=== PATIENT | male | born 1935 | race Caucasian/White ===

== ENCOUNTER 2019-04-29 12:31 | Outpatient (CLI) | payer MEDICARE, OTHER, SELFPAY ==
--- NOTE | 2019-04-29 12:34 | CT_ITS ---
WS: [id number] CTA THORACIC TECHNIQUE: Contrast enhanced CTA of the thoracic aorta with coronal and sagittal reformatted images a nd maximum intensity projection (MIP) images. CLINICAL INFORMATION: MILD ASCENDING AORTA DILATION COMPARISON: October 25, 2018 DLP: [id number] scans at [facility] use at least one of these dose optimization techniques: automat ed exposure control; mA and/or kV adjustment per patient size (includes targeted exams where dose is matched to clinical indication); or iterative reconstruction. FINDINGS: Ectatic dilated ascending thoracic aorta 4.0 x 3.8 cm AP by transverse is unchanged since the prior examination.. Normal descending thoracic aorta. Aortic calcification. Coronary calcification. Proxima l main pulmonary arteries are normal in appearance. A few anterior mediastinal lymph nodes. Calcified granulomas. Both lungs are well aerated. No acute pulmonary infiltrates. Adrenal glands are normal. Hypertrophic changes thoracic spine. CT/CT angio chest 59159 IMPRESSION: 1. Slightly ectatic ascending thoracic aorta measures 4.0 x 3.8 cm today AP by transverse. 2. Vascular calcification including coronary. 3. No mediastinal or hilar lymphadenopathy. 4. Lungs are well aerated. No acute pulmonary infiltrates.
[2019-04-29 13:41] LABS: Blood Urea Nitrogen 15 mg/dL (8-23)
[2019-04-29] MEDS: iohexol 350 mg/mL 100 mL Btl IV (15:28)
== END 2019-04-29 12:32 | disposition home or self-care (01) ==
LOC: RAD 12:32
PROVIDERS: Family Provider Family Medicine; PCP Family Medicine; Visit Provider Internal Medicine Cardiovascular Disease
DX: I77.810 Thoracic aortic ectasia (principal); I25.10 Atherosclerotic heart disease of native coronary artery without angina pectoris
CPT/HCPCS: 36415; 71275; 82565; 84520

== ENCOUNTER → 2019-08-05 14:12 | Outpatient (BNVA) | payer OTHER, MEDICARE, SELFPAY | PROVIDERS: Family Provider Family Medicine; PCP Family Medicine; Visit Provider Urology | DX: N39.0 Urinary tract infection, site not specified (principal); N40.1 Benign prostatic hyperplasia with lower urinary tract symptoms; N13.8 Other obstructive and reflux uropathy | CPT/HCPCS: 81001 ==

== ENCOUNTER 2019-09-06 06:49 | Day surgery (SDC) | payer MEDICARE, OTHER, SELFPAY ==
[2019-09-05 13:54] VITALS: BMI 28.0
[2019-09-06 07:05] VITALS: BP 120/77; PULSE 82; RESP 18; TEMP 37.2; O2SAT 98
[2019-09-06] MEDS: sodium chloride 0.9% 1,000 ML 30 ML IV (07:23)
[2019-09-06 07:27] LABS: Glucose Point of Care 84 mg/dL (70-110)
--- NOTE | 2019-09-06 07:28 | ANES.PREANE2 ---
Pre-Anesthetic Assessment Pre-Anesthetic Assessment: Height/Weight: Height 1.68 m Weight 78.925 kg Temp Pulse Resp BP Pulse Ox 99.0 F 82 18 120/77 98 09/06/19 07:05 09/06/19 07:05 09/06/19 07:05 09/06/19 07:05 09/06/19 07:05 Preop Diagnosis: screening Proposed Procedure: Operation Date: 09/06/19 08:20 Proposed Procedures p Colonoscopy G0105 Z86.010(Not Applicable) - Kip Armendariz MD Familial anesthetic complications: None Was Beta Kade taken within 24 hours: Yes Last intake: Intake Last Liquid Date 09/05/19 Last Liquid Time 23:00 Social: Social History: No alcohol and No tobacco Exam: Pre-Anes Outpt Exam: alert, oriented x 3, clear to auscultation bilaterally and regular rate & rhythm Airway: Cervical ROM: WNL MP: 2 Additional comments: dentures Pulmonary: Pulmonary: None reported CV/HEM: CV/HEM: CAD (stent placed 3 years ago; last took plavix day before yesterday), HTN and FL : : None reported Hepatic: Hepatic: None reported GI: GI: None reported Metabolic: Metabolic: DM Musc/skel: Musc/skel: Lower Back Pain Neuropsych: Neuropsych: None reported Anesthetic Plan: ASA status: 3 Anesthesia: MAC Risk of > 500 ml blood loss (7ml/kg in children): No Meds/Allergies Current Medications: Current Medications Generic Name Dose Route Start Last Admin Trade Name Freq PRN Reason Stop Dose Admin Sodium Chloride 1,000 mls @ 30 ml s/hr 09/06/19 07:00 09/06/19 07:23 Sodium Chloride 0.9% IV 30 mls/hr .Q24H ABRAHAM Administration PFSH Anesthesia PFSH: Medical History (Updated 09/04/19 @ 11:41 by Kip Armendariz MD) BPH (benign prostatic hyperplasia) BPH w/o urinary obs/LUTS CAD (coronary artery disease) Chronic back pain Diabetes History of prostatitis HTN (hypertension) Mild ascending aorta dilatation Surgical History History of bilateral knee replacement History of lumbar fusion Hx of heart artery stent Family History Other Heart disease Stroke Social History Smoking and tobacco status: former smoker Alcohol intake: current Alcohol intake frequency: holidays/special occasions only Adopted: No Caregiver/support person: No Lives independently: No Household members: spouse Marital status: Current occupational status: retired History of recent travel: No Current gender identity: Male Data Anesthesia Other Labs: Laboratory Results - last 48 hr 09/06/19 07:24 POC Glucose 84 Cardiac Studies: No Data to Display
--- NOTE | 2019-09-06 08:56 | W.PM.OPSUD ---
Surgery/Procedure H&P Update DATE OF PROCEDURE: September 06, 2019 DATE H&P PERFORMED: 09/04/19 PREOP DIAGNOSIS: screening PLANNED PROCEDURE: Operation Date: 09/06/19 08:20 Proposed Procedures p Colonoscopy G0105 Z86.010(Not Applicable) - Kip Armendariz MD
[2019-09-06 09:12] VITALS: BP 104/68; PULSE 69; RESP 16; TEMP 36.4; O2SAT 97
[2019-09-06 09:20] VITALS: BP 116/72; PULSE 68; RESP 18; O2SAT 96
== END 2019-09-06 09:30 | disposition home or self-care (01) ==
PROVIDERS: PCP Family Medicine; Visit Provider Internal Medicine
PROC: 0DJD8ZZ Inspection of Lower Intestinal Tract, Via Natural or Artificial Opening Endoscopic (ICD-10-PCS; CPT 45378; principal; 2019-09-06 08:15)
DX: Z12.11 Encounter for screening for malignant neoplasm of colon (principal); Z86.010 Personal history of colon polyps; Z79.82 Long term (current) use of aspirin; N40.1 Benign prostatic hyperplasia with lower urinary tract symptoms; N13.8 Other obstructive and reflux uropathy; E11.9 Type 2 diabetes mellitus without complications; I10 Essential (primary) hypertension; Z98.1 Arthrodesis status; Z87.891 Personal history of nicotine dependence
CPT/HCPCS: 12345; 36416; 45378; 82962; J2001; J3010; J7030

== ENCOUNTER 2019-09-19 08:11 | Outpatient (CLI) | payer MEDICARE, OTHER, SELFPAY ==
--- NOTE | 2019-09-19 08:44 | NMCV_ITS ---
NM adina perf SPECT r/s* [id number] Mati Wing Age: 83 Gender: M : 1935 Exam Date: 09/19/2019 08:44 Ordering Phys: Kennedi Roberts MD ([email or web address]) Technologist: RONALD Ortez Exam Location: [facility] Indications: CORONARY ARTERY DISEASE STRESS TEST Please see separate stress test report in [facility] for full findings IMAGE PROTOCOL Rest/Stress 1 Lexiscan Day Radiopharmaceutical Dose (mCi) Administration Site Administered by Rest: Tc-99m 10.5 IV RONALD Ortez Sestamibi Stress:Tc-99m 32..4 IV RONALD Andujar Sestamibi Rest: 19-Sep-2019 60 Discovery 630 Stress: 19-Sep-2019 30 Discovery 630 0.4mg Lexiscan. Images obtained in supine and prone position. SPECT RESULTS Technical Quality: Excellent Raw Data Analysis: Normal Image Corrections: No attenuation or motion correction applied Summed Stress Score: 24 Summed Rest Score: 14 Summed Difference Score: 10 PERFUSION FINDINGS Large size perfusion abnormality of moderate to severe severity of entire inferior, basal to mid inferolateral, mid septal, apical septal and apical lateral bolden on rest images with mild reversibility noted in mid to apical inferolateral bolden. FUNCTIONAL RESULTS (calculated via Gated SPECT) Stress Image LV EF (%): 66 Stress EDV (mL):116 TID: 1.13 Stress ESV (mL):39 FUNCTIONAL FINDINGS: The left ventricle is normal in size. Transient Ischemia Dilatation of 1.1. There is normal left ventricular systolic function. The left ventricular ejection fraction is normal with a value of 66%. There is normal left ventricular wall thickening. Normal end-diastolic and end-systolic volumes. IMPRESSIONS 1. Large size perfusion abnormality of moderate to severe severity of entire inferior, enitre inferolateral, mid septal and apical septal bolden with mild reversibility noted in mid to apical inferolateral bolden. 2. This is likely suggestive of small area of ischemia in circumflex artery territory. 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 3. Overall left ventricular systolic function is normal without regional wall motion abnormalities. 4. The left ventricular ejection fraction is normal with a value of 66%. 5. No prior similar studies to compare. Kennedi Roberts MD (Electronically Signed) Final Date: 22 September 2019 18:19 S
--- NOTE | 2019-09-19 08:44 | ECG_ITS ---
NAME OF STUDY: LEXISCAN SESTAMIBI STRESS TEST INDICATION: Chest Pain PROCEDURE: At the baseline, the blood pressure was 144/93 mmHg with a heart rate of 51 bpm. The electrocardiogram showed sinus bradycardia. Nonspecific T wave inversion. Poor anterior R wave progression. The Lexiscan was infused over a period of 20 seconds. A total of 0.4 milligrams of Lexiscan was infused. The stress phase was continued for a total of 5 minutes. Heart rate at the end of the stress phase was 70 bpm with a blood pressure 129/66 mmHg. The EKG at the peak infusion revealed sinus rhythm with no significant ST-T wave changes. Sestamibi was injected 20 seconds after the Lexiscan infusion. Blood pressure at the end of the recovery phase was 142/76 mmHg with a heart rate of 73 beats per minute. CONCLUSION: 1. No significant EKG changes with the LexiScan infusion. 2. No LexiScan induced chest pain or cardiac arrhythmia. 3. Normal blood pressure and heart rate response. 4. Sestamibi/sestamibi perfusion scan pending; see separate report. Electronically Signed On 09-20-2019 18:16:33 CDT by Kennedi Roberts M.D. [email or web address]
[2019-09-19 08:45] VITALS: BMI 29.8
[2019-09-19] MEDS: regadenoson 0.4 Mg/5 ml Syringe IVP (10:12)
[2019-09-19 10:16] VITALS: BP 121/67; PULSE 72
== END 2019-09-19 08:12 | disposition home or self-care (01) ==
LOC: RAD 08:17
PROVIDERS: PCP Family Medicine; Visit Provider Internal Medicine Cardiovascular Disease
DX: I25.10 Atherosclerotic heart disease of native coronary artery without angina pectoris (principal); R06.09 Other forms of dyspnea; R07.9 Chest pain, unspecified
CPT/HCPCS: 78452; 93017; A9500; J2785

== ENCOUNTER 2019-10-10 08:17 | Observation (INO) | payer MEDICARE, OTHER, SELFPAY ==
[2019-10-10] VITALS (46 sets, daily range): BP systolic 92–162; BP diastolic 48–82; PULSE 52–80; RESP 0–25; TEMP 36.6–37; O2SAT 88–98; BMI 29.7
--- NOTE | 2019-10-10 06:00 | XACV_ITS ---
Exam Room: 1 Ht: 168 cm Wt: 83 kg BSA: 2.00 m2 Gender: Male : 1935 Exam Priority: Routine Indication(s): - Abnormal nuclear perfusion study Procedure(s): Procedure Description: Diagnostic procedure Procedure Description: PCI procedure Procedure Description: Left Heart Catheterization Procedure Description: Left ventriculography Procedure Description: Drug Eluting Coronary Stent Procedure Description: Coronary Angiography Diagnostic Cath Status: Elective Diagnostic Findings Patient has a previously known history of coronary disease with stents in the right, circumflex and LAD. Recent stress testing revealed a large area of decreased tracer uptake. Coronary angiography was scheduled. The anatomy reveals right coronary artery dominance. The left main coronary artery is normal. The LAD contains a stent in the proximal portion which extends toward the midportion. The stent itself is open however at the distal end of the stent there is a 90% discrete stenosis. The remainder of the LAD contains mild to moderate diffuse plaquing. The circumflex contains a 40 to 50% ostial and proximal stenosis. This extends into the first obtuse marginal branch which comes off very quickly. There is a stent in the mid circumflex which is widely patent. Both the LAD and circumflex provide collateral flow to the dominant right coronary artery. The right coronary artery is occluded. I was never able to find the ostium. It appears from the fluoroscopy that previously placed stents actually protrude from the ostial right coronary artery into the aorta. The vessel is closed. PCI Status: Elective PCI LVEF Assessed: Yes PCI Indication: CAD (without Ischemic Sx) Interventional Findings The mid LAD lesion distal to the existing stent was primarily stented with a 3 mm x 8 mm stent. Decision for PCI with Surgical Consult: No PCI for Multi-vessel Disease: No Conclusions Occluded right coronary artery at the origin with collateral flow from the circumflex and LAD. Mid LAD lesion 90% stented primarily. Previously placed LAD and circumflex stents patent. Normal left ventricular function. Interventional RX Recommendation: PCI w/o planned CABG Diagnostic RX Recommendation: PCI w/o planned CABG Anticoagulation: Heparin Ventriculography Ejection Fraction: 55.0 % Pressures Phase:Rest AO : 72 mmHg / 55 mmHg ( 65 mmHg ) @ 2:32:00 AM 75 mmHg / 46 mmHg ( 60 mmHg ) @ 2:38:00 AM 82 mmHg / 54 mmHg ( 68 mmHg ) @ 2:42:00 AM 117 mmHg / 56 mmHg ( 81 mmHg ) @ 2:52:00 AM 116 mmHg / 56 mmHg ( 80 mmHg ) @ 2:52:00 AM 117 mmHg / 60 mmHg ( 83 mmHg ) @ 2:54:00 AM 100 mmHg / 60 mmHg ( 78 mmHg ) @ 2:58:00 AM LV : 128 mmHg / -8 mmHg / @ 2:49:00 AM 132 mmHg / -6 mmHg / @ 2:50:00 AM 132 mmHg / -3 mmHg / @ 2:52:00 AM Valves Phase:DefaultPhase AV : 15.0 mmHg @ 8:09:17 AM AV Mean Gradient: 16.0 mmHg @ 8:09:17 AM Clinical Evaluation EBL: 5mL-10mL Procedural Details Procedure Consent Obtained. Pre-Procedure Time Out. Identified patient by full name and date of as verbalized by the patient/guarantor. Does the consent match the physician's order: Yes. Accurate & Complete Informed Consent: Yes. Inpatient/Outpatient History & Physical on Chart: Yes. If H&P is completed, is and addenduem needed: No. Visualize and Verify Site with Patient/Guarantor: N/A. Relevant Radiology Images available: Yes. The risks, benefits, and alternatives of sedation and/or procedure were discussed by physician. The patient agrees to continue. Procedure started. [facility] Clinical Fraility Score: 3: Managing Well. Service Coordinator Indications: Stable Known CAD. Chest Pain Symptom Assessment: Asymptomatic. Cardiovascular Instability: No. Correct patient, site and procedure confirmed by cath team. PERRLA. Strong, equal hand cco & president bilaterally. Lungs clear x 5 lobes. IV Site on Arrival: 20 gauge in the left forearm. IV Fluids: 0.9% NaCl at KVO. 0 mL infused prior to botany laboratory assistant. Pre Procedural Pulses: bilateral posterior tibial was 3+. Pre Procedural Pulses: bilateral dorsalis pedis was 3+. Pre Procedural Pulses: bilateral radial was 3+. Oxygen started at 2liters/min via nasal canula. right groin was prepped with chloroprep then draped in the usual sterile fashion. right radial was prepped with chloroprep then draped in the usual sterile fashion. Physician notified. Physician arrived. Patient's family unavailable due to current Covid-19 restrictions. The patient asked that we contact his , Betty, at the start and when we are finished. He stated no need to call her every 30 minmutes. Equipment: 6F - Radial. Cardiac Cath Pack. ACIST Manifold Kit Model BT 2000. Heparinized Saline (2 units/mL), 1000 mL bag. Physician scrubbed in. Immediate Pre-Procedure Time Out. Correct Patient: Yes; Correct Procedure: Yes; Correct Site: Yes; Correct Patient Position: Yes; Correct Supplies: Yes; Dried Flammable Prep: Yes; Blood Products Available: N/A;. The patient's , Betty, was called and updated. Lidocaine 1% infiltrated to the right radial. Arterial access obtained. A 6 liberian TIG catheter in over wire. Multiple views taken of left coronary artery. Catheter redirected to the RCA. Unable to cannulate RCA. Catheter removed over the exchange wire. A 6 liberian JR4 catheter in over wire. Unable to cannulate RCA. Catheter removed over the exchange wire. A 6 liberian AL1 catheter in over wire. Cine of the RCA performed. Catheter removed over the exchange wire. A 6 liberian Angled Pig catheter in over wire. EDP Sample taken: LV 128/-9,18; HR: 54 BPM; SpO2: 100%. LV gram performed in YEPEZ @ 10 mL/second for a total of 30 mL. EDP Sample taken: LV 132/-7,22; HR: 57 BPM; SpO2: 100%. Pullback taken: LV 132/-4,23; AO 117/56(81); Mean: 16mmHg, Peak to Peak: 15mmHg, SEP: 17sec/min; HR: 55 BPM; SpO2: 100%. Catheter removed over the exchange wire. Physician review of cine films. 6 liberian XB 3 guide catheter was inserted over the wire. Froid guidewire was advanced through the guide catheter to lesion in the mid LAD. Jose Alberto Real RT, scrubbed in with Dorcas Soler RT (R). Inflation Number : 1 A SWAPNA Hawkins DANYELLE 3.0X8 MELISSA -Lot Number# [id number] was prepped and advanced across the Mid LAD. The stent was deployed at 12 ROBIN for 0:49 seconds. Exp. 12/16/2020. Results checked. Stent balloon out over wire. Wire out. Guide catheter out. Physician scrubbed out. TR band placed. Hemostasis obtained. Post Procedure: Pulses reassessed and unchanged. PERRLA. Strong, equal hand cco & president bilaterally. No VTE prophylaxis required. Medication's Wasted: Lidocaine 1% = 18 mL. Medication's Wasted: Nitro = 49.8 mg. Medication's Wasted: Heparin = 1000 Units. Total IV fluids: 70 mL. PCI Indication: CAD (without ischemic symptoms). Post-op diagnosis: CAD. Complications: none. Estimated blood loss: 5mL-10mL. Procedure completed. Patient transferred by wheelchair to CPRU. Vital chart was stopped. Dr Villatoro updated the , Betty, via telephone. Site: Right Radial artery Sheath Size: 6 Fr Hemostasis Success: Unsuccessful Procedure Medications Start: 7:11 AM Stop: 7:11 AM Medication: Versed Amount: 1 mg Route: I.V. Start: 7:11 AM Stop: 7:11 AM Medication: Fentanyl Amount: 50 mcg Route: I.V. Start: 7:15 AM Stop: 7:15 AM Medication: Versed Amount: 1 mg Route: I.V. Start: 7:16 AM Stop: 7:16 AM Medication: Fentanyl Amount: 50 mcg Route: I.V. Start: 7:27 AM Stop: 7:27 AM Medication: Verapamil Amount: 5 mg Route: I.A. Start: 7:27 AM Stop: 7:27 AM Medication: Nitrogylcerin Amount: 200 mcg Route: I.A. Start: 7:30 AM Stop: 7:30 AM Medication: Heparin Amount: 5000 units Route: I.V. Start: 7:31 AM Stop: 7:31 AM Medication: Versed Amount: 1 mg Route: I.V. Start: 7:31 AM Stop: 7:31 AM Medication: Fentanyl Amount: 50 mcg Route: I.V. I, the attending physician, have reviewed and verified all procedure medications. Yes, all medications given per verbal order History/Risk Factors Hypertension: Yes Dyslipidemia: No Diabetic Therapy: Insulin Peripheral Arterial Disease (PAD): No Myocardial Infarction (TX): No Obesity: No Renal Disease: No Tobacco Use: Former Prior Interventions PCI: Yes CABG: No Valve Surgery: No Report Signatures Finalized by:Dr. Aayush Villatoro MD on 10/10/2019 11:06:30 AM
[2019-10-10] MEDS: diphenhydrAMINE 50 mg Capsule PO (06:50)
[2019-10-10 06:54] LABS: Basophils % 0.6 %; Eosinophils # 0.1 10^3/uL (0.0-0.8); Eosinophils % 1.9 %; Hematocrit 37.3 % (42.0-52.0); Hemoglobin 12.1 g/dL (11.7-16.6); Lymphocytes # 1.9 10^3/uL (0.8-4.8); Mean Corpuscular HGB Conc 32.4 g/dL (30.0-36.0); Mean Corpuscular Hemoglobin 29.7 pg (28.0-34.0); Mean Corpuscular Volume 91.4 fL (80-94); Mean Platelet Volume 8.9 fL (7.4-10.4); Monocytes # 0.6 10^3/uL (0.2-0.9); Neutrophils # 3.5 10^3/uL (1.8-7.7); Neutrophils % 56.3 %; Nucleated Red Blood Cells % 0 %; Platelet Count 222 10^3/cmm (130-400); Red Blood Count 4.08 10^6/uL (4.1-5.3); Red Cell Distribution Width 14.1 % (12.1-15.1); White Blood Count 6.2 10^3/uL (4.0-10.0)
[2019-10-10 07:06] LABS: Anion Gap 13.1 (5-19); Blood Urea Nitrogen 14 mg/dL (8-23); Calcium 9.2 mg/dL (8.5-10.5); Carbon Dioxide 28 mmol/L (22-29); Chloride 99 mmol/L (98-107); Glucose 81 mg/dL (65-115); Osmolality Calculated 277 mOsm/kg (285-295); Potassium 4.1 mmol/L (3.5-5.1); Sodium 136 mmol/L (136-145)
--- NOTE | 2019-10-10 07:13 | PM.HP ---
Providers/Chief Complaint Primary Care Provider: Juliane Chen DO Chief Complaint: Abnormal stress test History of Present Illness Mati Wing is a 84 year old male who is being seen today for purposes of elective cardiac catheterization. He saw Dr. Roberts in late May after being in the hospital with an episode of chest pain. Patient was constipated and the pain was relieved with an enema. His troponins were negative and there were no significant EKG changes. Subsequent to that he had a stress test which was a nuclear perfusion test. This was done earlier this month. It was read as a large perfusion defect of moderate to severe severity of the entire inferior, inferolateral mid septal and apical septal bolden with mild reversibility. It was read as suggestive of a small area of ischemia in the circumflex territory. The ejection fraction was 65%. Because of this the patient was referred for angiography. Review of Systems General: Reports: 10 or more systems reviewed and unremarkable except in HPI and below Medications/Allergies Home Medications Medication Instructions Recorded Confirmed Last Taken Type aspirin 81 mg tablet,delayed 81 mg PO DAILY 06/14/19 10/10/19 10/09/19 21:00 History release clopidogrel 75 mg tablet 75 mg PO DAILY 06/14/19 10/10/19 10/10/19 05:00 History fentanyl 100 mcg/hr transdermal 1 patch TRANSDERMA Q72H 06/14/19 10/10/19 10/09/19 21:00 History patch fluoxetine 20 mg capsule 20 mg PO EVERY OTHER DAY 06/14/19 10/10/19 10/10/19 05:00 History propranolol 10 mg tablet 10 mg PO BID tab 06/14/19 10/10/19 10/10/19 05:00 History tamsulosin 0.4 mg capsule 0.4 mg PO DAILY 06/14/19 10/10/19 10/09/19 21:00 History temazepam 15 mg capsule 15 mg PO DAILY 06/14/19 10/10/19 10/08/19 21:00 History oxycodone 30 mg tablet 30 mg PO Q4H PRN 08/05/19 10/10/19 10/09/19 21:00 History insulin glargine [Lantus Solostar 30 unit SUBCUT DAILY 10/10/19 10/10/19 10/09/19 21:00 History U-100 Insulin] Allergies Allergy/AdvReac Type Severity Reaction Status Date / Time No Known Allergies Allergy Unverified 10/10/19 06:36 PFSH Acute PFSH: Medical History (Updated 10/10/19 @ 07:16 by Aayush Villatoro MD) BPH (benign prostatic hyperplasia) BPH w/o urinary obs/LUTS CAD (coronary artery disease) Chronic back pain Diabetes History of prostatitis HTN (hypertension) Mild ascending aorta dilatation Surgical History (Updated 10/10/19 @ 07:16 by Aayush Villatoro MD) History of bilateral knee replacement History of lumbar fusion Hx of heart artery stent Family History Other Heart disease Stroke Social History Smoking and tobacco status: former smoker Alcohol intake: current Alcohol intake frequency: holidays/special occasions only Adopted: No Caregiver/support person: No Lives independently: No Household members: spouse Marital status: Current occupational status: retired History of recent travel: No Current gender identity: Male Vitals/I&O/Wt Last Vital Signs Temp 98.6 F 10/10/19 06:54 Pulse 65 10/10/19 06:54 Resp 18 10/10/19 06:54 BP 162/82 10/10/19 06:54 Pulse Ox 97 10/10/19 06:54 Weight last 48 hrs Weight 184 lb Physical Exam Narrative: EXAM NARRATIVE: GENERAL: In general he looks and feels well HEENT: Exam within normal limits. NECK: Supple without jugular vein distention. The carotid upstroke is normal without bruits. BACK: Exam normal. LUNGS: Clear. HEART: Regular rate and rhythm. ABDOMEN: Benign without organomegaly or tenderness. EXTREMITIES: No edema. NEUROLOGIC: Exam normal. SKIN: Unremarkable. Data : 10/10/19 06:44 10/10/19 06:44 A&P Assessment and plan (1) HTN (hypertension): Status: Acute (2) Diabetes: Status: Acute Qualifiers: Diabetes mellitus type: type 2 (3) CAD (coronary artery disease): Status: Acute (4) Mild ascending aorta dilatation: Status: Acute (5) Hx of heart artery stent: Status: Acute Additional A&P Information Coronary angiography today. Do not expect overnight stay. Outpatient in a bed. Attestations Medical Necessity Statement*: Outpatient in a bed Coding Level of Care Code New Pt Acute Manager Social Media for Chg Fwd Patient Type New History Expanded Problem Focused Exam Expanded Problem Focused Medical Decision Making Moderate Complexity Diagnoses HTN (hypertension) I10 Diabetes E11.9 Diabetes mellitus type: type 2 CAD (coronary artery disease) I25.10 Mild ascending aorta dilatation I77.810 Hx of heart artery stent Z95.5
[2019-10-10 08:59] LABS: Glucose Point of Care 80 mg/dL (70-110)
--- NOTE | 2019-10-10 10:30 | PC.CHAP ---
Pastoral Care Encounter/Spiritual Assessment Type of Contact [] Declined auriculotherapist visit [] Patient/Family/Request visit [] Outpatient visit [] Follow-up visit [] Physician referral [] Code/Alert [x] Routine visit [] Staff referral [] Actively dying [] Patient sleeping [] Family support [] [] Out of room [] Palliative care [] [] Receiving care in room [] Pre-surgical visit [] Trauma [] Long length of stay [] ICU visit [] Other: Relational/Emotional Strength [x] Patient feels connected with others/family/visitors/staff [] Distress [] Loneliness/isolation [] Abandonment Spirituality of Patient [x] Person of Karely [x] Attends Jewish of their Karely [x] Believes in Prayer [x] Reads Bible or Christian materials [] There are Spiritual issues to be addressed Elementary [employer] Teacher Interventions [x] Prayer [x] Active listening [x] Non-anxious presence [x] Spiritual/emotional support [] Crisis/trauma care [] Spiritual counseling [] Bereavement support [] Provided bereavement packet [] Provided Bible/devotional materials [] Provided toy/stuffed animal, coloring book to patient or family member [] Provided Communion [] Anointing/[place] [] Salvation [x] Completed spiritual assessment [] Other: Impact on Illness or Injury [] Angry [] Fearful [] Anxious [] Often cries [] Exhaustion [] Unable to work [] Unable to attend latter-day [] Unable to walk/stand [] Unable to read [] Unable to drive [] Unable to eat/drink [] Unable to sleep [] Unable to be with family [] Patient intubated [x] Other: Summary Patient is strong in his karely and commitment to [employer] Americo as Lord. Time spent with patient 10 minutes
[2019-10-10 11:37] LABS: Glucose Point of Care 84 mg/dL (70-110)
[2019-10-10 16:37] LABS: Glucose Point of Care 116 mg/dL (70-110)
--- NOTE | 2019-10-10 17:21 | PC.NURSE ---
received from cardiac film laboratory technician at 0820.report received.pt is drowsy but easily awakened.alert and oriented x 4.sr on monitor.denies pain.right wrist with tr band intact and inflated.no hematoma noted.right hand is warm to touch and with brisk capillary refill.palpable radial pulse noted distal to tr band.instructed in activity restrictions s/p radial artery procedure..and instructed to notify staff for any bleeding,pain,numbness..or for any concerns at all.pt verb understanding of instructions.
--- NOTE | 2019-10-10 17:53 | PC.NURSE ---
tr band removal :right wrist tr band slowly deflated from 11:00.at 12:10 bleeding noted..so 6 cc air injected into tr band.bleeding subsided and no hematoma noted.waited for 1 hour..then began to slowly decrease air again.tr band off at 1630.site dressed with 2x2 and biocclusive drsg to secure.no hematoma noted.right hand is warm to touch and with brisk capillary refill.palpable radial pulse noted.instructed pt in activity restrictions s/p tr band removal...and instructed to notify staff for any bleeding ,pain,numbness...or for any concerns at all.pt verb understanding of instructions.
[2019-10-10] MEDS: propranolol 20 mg Tablet 10 MG PO (18:39)
[2019-10-10] MEDS: temazepam 15 mg Capsule PO (20:08)
[2019-10-10] MEDS: fentaNYL 100 mcg Patch 1 PATCH TRANSDERMA (20:09)
[2019-10-10] MEDS: sodium chloride 0.9% 1,000 ML 100 ML IV (20:09)
--- NOTE | 2019-10-10 20:16 | PC.NURSE ---
Pt sitting in chair at bedside. Linens changed. No complaints of pain. Right radial COA site with dressing clean, dry, and intact. No issues noted or any signs of distress. Pt stated he is ready for bed. Denies further needs.
--- NOTE | 2019-10-10 20:34 | PC.NURSE ---
Offered patient a bath. Patient stated he rather have a shower in the morning.
[2019-10-11 04:00] VITALS: BP 125/60; PULSE 59; RESP 15; TEMP 36.8; O2SAT 94
[2019-10-11 05:00] LABS: Basophils % 0.7 %; Eosinophils # 0.1 10^3/uL (0.0-0.8); Eosinophils % 1.9 %; Hematocrit 35.3 % (42.0-52.0); Hemoglobin 11.2 g/dL (11.7-16.6); Lymphocytes % 34.4 %; Mean Corpuscular HGB Conc 31.7 g/dL (30.0-36.0); Mean Corpuscular Hemoglobin 29.1 pg (28.0-34.0); Mean Corpuscular Volume 91.7 fL (80-94); Monocytes # 0.6 10^3/uL (0.2-0.9); Monocytes % 9.6 %; Neutrophils # 3.2 10^3/uL (1.8-7.7); Neutrophils % 53.1 %; Nucleated Red Blood Cells % 0 %; Platelet Count 182 10^3/cmm (130-400); Red Blood Count 3.85 10^6/uL (4.1-5.3); Red Cell Distribution Width 14.1 % (12.1-15.1); White Blood Count 5.9 10^3/uL (4.0-10.0)
[2019-10-11 05:37] LABS: Anion Gap 10.9 (5-19); Blood Urea Nitrogen 13 mg/dL (8-23); Calcium 8.9 mg/dL (8.5-10.5); Carbon Dioxide 28 mmol/L (22-29); Chloride 96 mmol/L (98-107); Glucose 75 mg/dL (65-115); Osmolality Calculated 267 mOsm/kg (285-295); Potassium 3.9 mmol/L (3.5-5.1); Sodium 131 mmol/L (136-145)
--- NOTE | 2019-10-11 06:36 | P.DS_ITS ---
Discharge Providers Date of Admission: 10/10/19 08:17 Date of Discharge: October 11, 2019 Attending Provider at Admission: Aayush Villatoro MD Attending Provider at Discharge: Aayush Villatoro MD Primary Care Provider: Juliane Chen DO Diagnoses at Discharge Discharge Diagnosis (1) HTN (hypertension): Status: Acute (2) Diabetes: Status: Acute Qualifiers: Diabetes mellitus type: type 2 (3) CAD (coronary artery disease): Status: Acute (4) Mild ascending aorta dilatation: Status: Acute (5) Hx of heart artery stent: Status: Acute Reason for Visit Reason for Visit: Abnormal stress test Hospital Course Hospital Course: Patient underwent coronary angiography via the right radial artery. The right coronary artery is occluded at the origin. There is good collateral flow from both the LAD and the circumflex. Previously placed stents were noted in the ostium of the right coronary artery which extend into the aorta. Previously placed circumflex stent is widely patent. There is a 40 to 50% ostial circumflex stenosis. The left main is normal. Previously placed LAD stents were patent. In the midportion however at the distal end of the previously placed stents there was a 90% discrete stenosis. This was stented primarily. Patient has essentially normal left ventricular function with very minimal hypokinesis in the distribution of the right coronary artery. He tolerated the procedure well. No complications. The right radial entry site was free of bleeding or hematoma. It was flat and dry at the time of discharge. Physical Exam Narrative: EXAM NARRATIVE: GENERAL: In general he looks and feels well HEENT: Exam within normal limits. NECK: Supple without jugular vein distention. The carotid upstroke is normal without bruits. BACK: Exam normal. LUNGS: Clear. HEART: Regular rate and rhythm. ABDOMEN: Benign without organomegaly or tenderness. EXTREMITIES: No edema. Right radial entry site flat, dry without bleeding, hematoma or mass. Normal pulse 3+. NEUROLOGIC: Exam normal. SKIN: Unremarkable. Discharge Data Data Completed and Pending: Completed Studies During Hospitalization Category Date Time Status TECHNICAL FELLOW request for service Routin e Exams 10/10/19 06:00 Completed Labs from last 24 hours 10/11/19 10/11/19 10/10/19 04:38 04:38 16:28 WBC 5.9 RBC 3.85 L Hgb 11.2 L Hct 35.3 L MCV 91.7 MCH 29.1 MCHC 31.7 RDW 14.1 Plt Count 182 MPV 9.0 Neut % (Auto) 53.1 Lymph % (Auto) 34.4 [place] % (Auto) 9.6 Eos % (Auto) 1.9 Baso % (Auto) 0.7 Neut # (Auto) 3.2 Lymph # (Auto) 2.0 [place] # (Auto) 0.6 Eos # (Auto) 0.1 Baso # (Auto) 0.0 Nucleated RBC % (a uto) 0 Nucleated RBCs # 0.0 Sodium 131 L Potassium 3.9 Chloride 96 L Carbon Dioxide 28 Anion Gap 10.9 BUN 13 Creatinine 0.6 L Glucose 75 POC Glucose 116 Calculated Osmolal ity 267 L Calcium 8.9 10/10/19 10/10/19 10/10/19 11:20 08:49 06:44 WBC RBC Hgb Hct MCV MCH MCHC RDW Plt Count MPV Neut % (Auto) Lymph % (Auto) [place] % (Auto) Eos % (Auto) Baso % (Auto) Neut # (Auto) Lymph # (Auto) [place] # (Auto) Eos # (Auto) Baso # (Auto) Nucleated RBC % (a uto) Nucleated RBCs # Sodium 136 Potassium 4.1 Chloride 99 Carbon Dioxide 28 Anion Gap 13.1 BUN 14 Creatinine 0.6 L Glucose 81 POC Glucose 84 80 Calculated Osmolal ity 277 L Calcium 9.2 10/10/19 06:44 WBC 6.2 RBC 4.08 L Hgb 12.1 Hct 37.3 L MCV 91.4 MCH 29.7 MCHC 32.4 RDW 14.1 Plt Count 222 MPV 8.9 Neut % (Auto) 56.3 Lymph % (Auto) 31.0 [place] % (Auto) 10.0 Eos % (Auto) 1.9 Baso % (Auto) 0.6 Neut # (Auto) 3.5 Lymph # (Auto) 1.9 [place] # (Auto) 0.6 Eos # (Auto) 0.1 Baso # (Auto) 0.0 Nucleated RBC % (a uto) 0 Nucleated RBCs # 0.0 Sodium Potassium Chloride Carbon Dioxide Anion Gap BUN Creatinine Glucose POC Glucose Calculated Osmolal ity Calcium Vitals: Last Vital Signs Temp 98.3 F 10/11/19 04:00 Pulse 59 L 10/11/19 04:00 Resp 15 10/11/19 04:00 BP 125/60 10/11/19 04:00 Pulse Ox 94 10/11/19 04:00 Discharge Plan Discharge Patient Disposition: Home, Self-Care Condition: Stable Prescriptions: Continued propranolol 10 mg tablet 10 mg PO BID RF: 0 aspirin [Aspir-81] 81 mg tablet,delayed release (DR/EC) 81 mg PO DAILY RF: 0 clopidogrel 75 mg tablet 75 mg PO DAILY RF: 0 fentanyl 100 mcg/hr patch 72 hour 1 patch TRANSDERMA Q72H RF: 0 temazepam 15 mg capsule 15 mg PO DAILY RF: 0 tamsulosin 0.4 mg capsule 0.4 mg PO DAILY RF: 0 fluoxetine 20 mg capsule 20 mg PO EVERY OTHER DAY RF: 0 oxycodone 30 mg tablet 30 mg PO Q4H PRN (Reason: Pain) RF: 0 Lantus Solostar U-100 Insulin 100 unit/mL (3 mL) Insulin Pen 30 unit SUBCUT DAILY RF: 0 Discharge Orders: Discharge Order (Routine); Ordered 10/11/19 Ordered By: Aayush Villatoro Referrals: Vernell Bauman FNP [Nurse Practitioner] - 7-10 days Kennedi Roberts MD [Physician] - 3 months Discharge Diet: Diabetic Discharge Activity: Limit activity as instructed Activity Restrictions/Additional Instructions: No lifting over 5 pounds for 2 days with the right arm. No change in medications. Discharge Attestations Time Spent in Discharge Care*: less than 30 min Specific Discharge Activities: Specific discharge activities: educating patient Quality Metrics Clinical Quality Measures During this hospital stay, did patient experience: None Coding Level of Care Code Established Pt Acute Tennis Director for Danng Fwclementine Patient Type Established History Detailed Exam Detailed Medical Decision Making Moderate Complexity Diagnoses HTN (hypertension) I10 Diabetes E11.9 Diabetes mellitus type: type 2 CAD (coronary artery disease) I25.10 Mild ascending aorta dilatation I77.810 Hx of heart artery stent Z95.5
[2019-10-11 07:51] VITALS: BP 143/80; PULSE 64; RESP 17; TEMP 36.9; O2SAT 93
== END 2019-10-11 09:05 | disposition home or self-care (01) ==
LOC: CSU 08:17
PROVIDERS: Admitting Provider Internal Medicine Cardiovascular Disease; PCP Family Medicine; Visit Provider Internal Medicine Cardiovascular Disease
DX: I10 Essential (primary) hypertension (principal); E11.9 Type 2 diabetes mellitus without complications; I25.10 Atherosclerotic heart disease of native coronary artery without angina pectoris; I77.810 Thoracic aortic ectasia; Z95.5 Presence of coronary angioplasty implant and graft; Z79.82 Long term (current) use of aspirin; Z79.4 Long term (current) use of insulin; N40.0 Benign prostatic hyperplasia without lower urinary tract symptoms; G89.29 Other chronic pain; M54.9 Dorsalgia, unspecified; Z79.891 Long term (current) use of opiate analgesic; Z87.891 Personal history of nicotine dependence
CPT/HCPCS: 12345; 36415; 36416; 80048; 82962; 85025; 93452; C1769; C1874; C1887; C1894; C9600; G0378; J1644; J2001; J2250; J3010; J3490; J7030; Q0163; Q9967

== ENCOUNTER → 2020-09-21 09:10 | Outpatient (BNVA) | payer MEDICARE, OTHER, SELFPAY | PROVIDERS: PCP Family Medicine; Referring Provider Family Medicine; Visit Provider Anesthesiology Pain Medicine | DX: G89.29 Other chronic pain (principal); M54.9 Dorsalgia, unspecified; M79.661 Pain in right lower leg; M79.662 Pain in left lower leg; Z87.891 Personal history of nicotine dependence; Z79.891 Long term (current) use of opiate analgesic | CPT/HCPCS: 99205 ==

== ENCOUNTER → 2020-10-02 09:28 | Outpatient (BNVA) | payer MEDICARE, OTHER, SELFPAY | PROVIDERS: PCP Family Medicine; Visit Provider Anesthesiology Pain Medicine | DX: G89.29 Other chronic pain (principal); M47.816 Spondylosis without myelopathy or radiculopathy, lumbar region; M54.9 Dorsalgia, unspecified; Z87.891 Personal history of nicotine dependence | CPT/HCPCS: 64493; 64494; 64495; J3490 ==

== ENCOUNTER → 2020-10-16 10:17 | Outpatient (BNVA) | payer MEDICARE, OTHER, SELFPAY | PROVIDERS: PCP Family Medicine; Visit Provider Anesthesiology Pain Medicine | DX: G89.29 Other chronic pain (principal); M51.16 Intervertebral disc disorders with radiculopathy, lumbar region; M47.816 Spondylosis without myelopathy or radiculopathy, lumbar region; M54.9 Dorsalgia, unspecified; Z87.891 Personal history of nicotine dependence; Z79.891 Long term (current) use of opiate analgesic | CPT/HCPCS: 99214 ==

== ENCOUNTER → 2021-01-08 10:23 | Outpatient (BNVA) | payer MEDICARE, OTHER, SELFPAY | PROVIDERS: PCP Family Medicine; Visit Provider Anesthesiology Pain Medicine | DX: G89.29 Other chronic pain (principal); M47.816 Spondylosis without myelopathy or radiculopathy, lumbar region; M51.16 Intervertebral disc disorders with radiculopathy, lumbar region; M51.9 Unspecified thoracic, thoracolumbar and lumbosacral intervertebral disc disorder; M79.604 Pain in right leg; M79.605 Pain in left leg; Z79.891 Long term (current) use of opiate analgesic | CPT/HCPCS: 99214 ==

== ENCOUNTER 2021-01-12 14:16 | Outpatient (CLI) | payer MEDICARE, OTHER, SELFPAY ==
--- NOTE | 2021-01-12 15:15 | MR_ITS ---
WS: [id number] MRI THORACIC SPINE without HISTORY: M51.9 - Unspecified thoracic, mid and low back pain. Chronic. COMPARISON: None available. TECHNIQUE: Multiplanar sequences are performed in sagittal and axial planes. Disc and osteophyte disease in the cervical spine at C3-4, C5-6 and C6-7. Mild increase in the thoracic kyphosis centered near T6. Mild RIGHT curvature of the thoracic spine. Very small amount of marrow edema along the inferior endplate of T9 and also involving the endplates at L2-3. C7-T1: Moderate central disc protrusion without cord contact. T1-2: RIGHT paracentral disc protrusion without cord contact. Mild bilateral facet arthritis. T2-3: Mild bilateral facet joint arthritis. T3-4: Moderate bilateral facet joint arthritis without stenosis. T4-5: Mild bilateral facet joint arthritis. No stenosis. T5-6: Mild bilateral facet joint arthritis. T6-7: Mild facet joint arthritis. T7-8: Small LEFT paracentral disc protrusion with moderate facet joint arthritis. Mild bilateral for aminal narrowing. T8-9: Moderate-sized LEFT paracentral disc protrusion and moderate facet joint arthritis. No cord co ntact. Mild bilateral foraminal stenosis. T9-10: Diffuse annular disc bulging with a LEFT paracentral disc protrusion. Moderate to severe bila teral facet joint arthritis with moderate to severe bilateral foraminal stenosis. Mild central stenos is. T10-11: Moderate bilateral facet joint arthritis causing moderate bilateral foraminal stenosis. T11-12: Moderate facet joint arthritis, LEFT greater than RIGHT. Facet joint arthritis on the LEFT e ncroaching into the LEFT lateral thecal sac. Mild bilateral foraminal stenosis. MR/MR thoracic spin wo con* [id number] IMPRESSION: 1. No acute fracture. 2. Multilevel areas of facet disease and disc disease as above. 3. Disc and facet disease most significant from T7-8 through T11-12. 4. Moderate-sized LEFT paracentral disc protrusion at T8-9 with moderate facet joint arthritis. 5. LEFT paracentral disc protrusion with moderate to severe bilateral facet mily int arthritis and moderate to severe foraminal stenosis at T9-10. Mild central stenosis. 6. Moderate bilateral foraminal stenosis at T10-11 and mild at T11-12.
== END 2021-01-12 14:17 | disposition home or self-care (01) ==
LOC: RADSHAW 14:23
PROVIDERS: PCP Family Medicine; Visit Provider Anesthesiology Pain Medicine
DX: M51.9 Unspecified thoracic, thoracolumbar and lumbosacral intervertebral disc disorder (principal); M47.894 Other spondylosis, thoracic region; M48.04 Spinal stenosis, thoracic region
CPT/HCPCS: 72146

== ENCOUNTER → 2021-02-08 12:48 | Outpatient (BNVA) | payer MEDICARE, OTHER, SELFPAY | PROVIDERS: PCP Family Medicine; Visit Provider Anesthesiology Pain Medicine | DX: Z01.812 Encounter for preprocedural laboratory examination (principal); E11.9 Type 2 diabetes mellitus without complications; G89.29 Other chronic pain; M54.50 Low back pain, unspecified; M51.16 Intervertebral disc disorders with radiculopathy, lumbar region | CPT/HCPCS: 36416; 63650; 82962; C1778 ==

== ENCOUNTER → 2021-07-21 07:14 | Day surgery (SDC) | payer MEDICARE, OTHER, SELFPAY ==
[2021-07-21] VITALS (10 sets, daily range): BP systolic 95–120; BP diastolic 39–71; PULSE 62–70; RESP 18; TEMP 36.6–37.3; O2SAT 92–98
[2021-07-21 07:35] LABS: Hematocrit 27.6 % (42.0-52.0)
[2021-07-21] MEDS: sodium chloride 0.9% (100 ml) 100 ML 10 ML ×2 (08:45→11:04)
--- NOTE | 2021-07-21 12:49 | PC.NURSE ---
Pt to GI lab for blood transfusion. Hg noted from today at 8.0. Two units PRBC's transfused without difficulty. No signs of reaction noted. Pt tolerated well.
== END ==
PROVIDERS: PCP Family Medicine; Visit Provider Family Medicine
DX: Z01.818 Encounter for other preprocedural examination (principal)
CPT/HCPCS: 36415; 36430; 85014; 85018; 86850; 86900; 86920; P9016

== ENCOUNTER 2021-10-07 12:00 | Oncology outpatient (recurring) (ONCR) | payer MEDICARE, OTHER, SELFPAY ==
[2021-09-30 13:47] LABS: Hematocrit 27.7 % (42.0-52.0); Hemoglobin 8.1 g/dL (11.7-16.6); Lymphocytes # 1.2 10^3/uL (0.8-4.8); Lymphocytes % 48.8 %; Mean Corpuscular HGB Conc 29.2 g/dL (30.0-36.0); Mean Corpuscular Hemoglobin 22.1 pg (28.0-34.0); Mean Corpuscular Volume 75.5 fl (80-94); Mean Platelet Volume 10.6 fL (7.4-10.4); Monocytes # 0.4 10^3/uL (0.2-0.9); Monocytes % 14.3 %; Neutrophils % 36.5 %; Nucleated Red Blood Cells % 0.8 %; Platelet Count 164 10^3/cmm (130-400); Red Blood Count 3.67 10^6/uL (4.1-5.3); White Blood Count 2.5 10^3/uL (4.0-10.0)
[2021-09-30 14:24] LABS: Slide Review Slide Review Perform
[2021-09-30 14:25] LABS: Neutrophils # 0.92 10^3/uL (1.8-7.7)
[2021-09-30 16:34] LABS: Bilirubin Urine Neg (Negative); Glucose Urine UA Norm (Normal); Ketones Urine Negative (Negative); Nitrate Urine Negative (Negative); Protein Urine Neg (Negative); Urine Appearance Clear (CLEAR); Urine Color Yellow (Yellow); Urobilinogen Urine 4 mg/dL (Negative); pH Urine 6 (5-7)
[2021-09-30 16:35] LABS: Add Urine Culture? No; Add Urine Microscopic? YES; Bacteria Urine TRACE /hpf; Blood Urine 2+ (Negative); Leukocyte Esterase Urine Negative (Negative); RBC Urine 0-4 /hpf (0-2); WBC Urine 0-4 /hpf (0-5)
[2021-09-30 17:25] LABS: Ferritin 202 ng/mL (30-400); Iron 39 ug/dL (59-158); Total Iron Binding Capacity 195 mcg/dl; Unsaturated Iron Binding 156 ug/dL (112-347)
== END 2021-10-14 23:59 | disposition home or self-care (01) ==
PROVIDERS: PCP Family Medicine; Visit Provider Internal Medicine Hematology & Oncology
DX: D50.9 Iron deficiency anemia, unspecified (principal); Z87.448 Personal history of other diseases of urinary system; Z86.010 Personal history of colon polyps; D70.9 Neutropenia, unspecified
CPT/HCPCS: 81001; 82728; 83021; 83540; 83550; 85014; 85018; 85025; 85041; 99204; 99214

== ENCOUNTER 2021-10-07 12:17 | Outpatient (CLI) | payer MEDICARE, OTHER, SELFPAY ==
[2021-10-07 12:37] LABS: Hematocrit 28.1 % (42.0-52.0); Hemoglobin 8.1 g/dL (11.7-16.6); Lymphocytes # 1.1 10^3/uL (0.8-4.8); Lymphocytes % 35.3 %; Mean Corpuscular HGB Conc 28.8 g/dL (30.0-36.0); Mean Corpuscular Hemoglobin 21.8 pg (28.0-34.0); Mean Corpuscular Volume 75.5 fl (80-94); Mean Platelet Volume 10.8 fL (7.4-10.4); Monocytes # 0.7 10^3/uL (0.2-0.9); Monocytes % 21.5 %; Neutrophils # 1.33 10^3/uL (1.8-7.7); Neutrophils % 41.9 %; Nucleated Red Blood Cells % 0.6 %; Platelet Count 151 10^3/cmm (130-400); Red Blood Count 3.72 10^6/uL (4.1-5.3); Red Cell Distribution Width 15.8 % (12.1-15.1); White Blood Count 3.2 10^3/uL (4.0-10.0)
[2021-10-07 12:58] LABS: Alanine Aminotransferase < 5 U/L (0-41); Albumin Level 3.3 g/dL (3.5-5.2); Alkaline Phosphatase 75 IU/L (40-130); Anion Gap 12.2 (5-19); Aspartate Amino Transferase 17 U/L (0-40); Blood Urea Nitrogen 15 mg/dL (8-23); Calcium 8.5 mg/dL (8.5-10.5); Carbon Dioxide 28 mmol/L (22-29); Chloride 98 mmol/L (98-107); Globulin 5.8 g/dL (1.3-4.6); Glucose 84 mg/dL (65-115); Osmolality Calculated 278 mOsm/kg (285-295); Potassium 4.2 mmol/L (3.5-5.1); Sodium 134 mmol/L (136-145); Total Bilirubin 0.5 mg/dL (0.15-1.2); Total Protein 9.1 g/dL (6.6-8.7)
[2021-10-07 13:14] LABS: Folate Level 9.4 ng/mL (4.5-32.2); Vitamin B12 362 pg/mL (232-1245)
== END 2021-10-07 12:18 | disposition home or self-care (01) ==
LOC: LAB 12:21
PROVIDERS: PCP Family Medicine; Visit Provider Internal Medicine Hematology & Oncology
DX: D64.9 Anemia, unspecified (principal)
CPT/HCPCS: 36415; 80053; 82607; 82746; 85025; 85045

== ENCOUNTER 2021-10-11 10:36 | Day surgery (SDC) | payer MEDICARE, OTHER, SELFPAY ==
[2021-10-08 12:37] VITALS: BMI 25.2
[2021-10-11 11:16] VITALS: BP 146/81; PULSE 62; RESP 18; TEMP 36.3; O2SAT 96
[2021-10-11] MEDS: sodium chloride 0.9% 1,000 ML 30 ML IV (11:24)
[2021-10-11 11:30] LABS: Hematocrit 27.9 % (42.0-52.0); Mean Corpuscular HGB Conc 28.7 g/dL (30.0-36.0); Mean Corpuscular Hemoglobin 21.2 pg (28.0-34.0); Mean Corpuscular Volume 73.8 fl (80-94); Mean Platelet Volume 11.3 fL (7.4-10.4); Platelet Count 174 10^3/cmm (130-400); Red Blood Count 3.78 10^6/uL (4.1-5.3); Red Cell Distribution Width 14.9 % (12.1-15.1); White Blood Count 3.2 10^3/uL (4.0-10.0)
[2021-10-11 12:50] LABS: Slide Review Slide Review Perform
[2021-10-11 12:51] LABS: Absolute Segmented Neutrophil 0.8 10/cmm (1.6-7.1); Eosinophils 0 %; Lymphocytes 38 %; Lymphocytes Absolute 1.5 10^3/cmm (1.2-3.4); Monocytes Absolute 0.9 10^3/cmm (0.1-0.6); Segmented Neutrophils 24 %; Total Cells Counted 100 (0-100)
[2021-10-11 12:52] LABS: Giant Platelets Trace; Hypochromasia 2+; Microcytosis Trace; Platelet Estimate Normal (Normal); Target Cells 1+
[2021-10-11 12:54] LABS: Absolute Neutrophil 0.8 10^3/cmm (1.4-6.5)
--- NOTE | 2021-10-11 12:54 | W.PM.OPSUD ---
Surgery/Procedure H&P Update DATE OF PROCEDURE: October 11, 2021 DATE H&P PERFORMED: 10/07/21 CHANGES TO PREVIOUS DOCUMENTATION: , Patient seen and examined, no new changes or symptoms since his last visit in the office PREOP DIAGNOSIS: screening PRIMARY INDICATION FOR PROCEDURE: Bicytopenia, rule out underlying myelodysplasia PLANNED PROCEDURE: Operation Date: 10/11/21 12:30 Proposed Procedures p Bone Marrow Biospy With Aspiration(Not Applicable) - Lobo Mcdaniels MD
--- NOTE | 2021-10-11 12:54 | ANES.PREANE2 ---
Pre-Anesthetic Assessment Height/Weight: Height 1.68 m Weight 70.76 kg Temp Pulse Resp BP Pulse Ox 97.3 F L 62 18 146/81 96 10/11/21 11:16 10/11/21 11:16 10/11/21 11:16 10/11/21 11:16 10/11/21 11:16 Preop Diagnosis: screening Operation Date: 10/11/21 12:30 Proposed Procedures p Bone Marrow Biospy With Aspiration(Not Applicable) - Lobo Mcdaniels MD Familial anesthetic complications: none Was Beta Kade taken within 24 hours: N/A Was Clonidine taken within 24 hours: N/A Last intake: Intake Last Liquid Date 10/10/21 Last Liquid Time 21:00 Last Solid Date 10/10/21 Last Solid Time 21:00 Social No alcohol and No tobacco Exam alert, oriented x 3, clear to auscultation bilaterally and regular rate & rhythm Airway Mallampati: Class II Dentition: false Pulmonary Sleep Apnea CV/HEM Coronary Artery Disease (stents) and Hypertension None reported Hepatic None reported GI None reported Metabolic Diabetes Mellitus Musc/skel None reported tomas and screws Neuropsych None reported Anesthetic Plan ASA status: 3 Anesthesia: MAC Risk of > 500 ml blood loss (7ml/kg in children): No Medications/Allergies Home Medications Medication Instructions Recorded Confirmed Last Taken Type fentanyl 100 mcg/hr transdermal 1 patch TRANSDERMA Q72H 06/14/19 10/08/21 10/10/21 History patch tamsulosin 0.4 mg capsule 0.4 mg PO DAILY 06/14/19 10/08/21 10/11/21 History temazepam 15 mg capsule 15 mg PO DAILY 06/14/19 10/08/21 10/10/21 History duloxetine 60 mg capsule,delayed 60 mg PO DAILY 06/08/21 10/08/21 07/20/21 History release hydromorphone 8 mg tablet 8 mg PO Q4H PRN 06/08/21 10/08/21 10/10/21 History hydroxyzine pamoate 50 mg capsule 50 mg PO TID PRN 06/08/21 10/08/21 10/10/21 History insulin glargine 100 unit/mL (3 25 unit SUBCUT .QHS 06/08/21 10/08/21 10/10/21 History mL) subcutaneous pen (Lantus Solostar U-100 Insulin) ciprofloxacin HCl 500 mg tablet 500 mg PO BID 10 Days #20 tab 09/30/21 10/08/21 10/10/21 Rx ketoconazole 2 % topical cream 1 applic TOPICAL BID PRN g 09/30/21 10/08/21 Unknown History mupirocin 2 % topical ointment 1 applic TOPICAL BID PRN g 09/30/21 10/08/21 Unknown History Allergies Allergy/AdvReac Type Severity Reaction Status Date / Time No Known Allergies Allergy Verified 10/07/21 13:39 Current Medications Generic Name Dose Route Start Last Admin Trade Name Freq PRN Reason Stop Dose Admin Sodium Chloride 1,000 mls @ 30 mls/hr 10/11/21 11:15 10/11/21 11:24 Sodium Chloride 0.9% IV 10/12/21 11:14 30 mls/hr .Q24H ABRAHAM Administration PFSH Anesthesia Medical History BPH (benign prostatic hyperplasia) BPH w/o urinary obs/LUTS CAD (coronary artery disease) Chronic back pain Diabetes History of bladder cancer History of prostatitis HTN (hypertension) Mild ascending aorta dilatation Surgical History History of bilateral knee replacement History of lumbar fusion Hx of heart artery stent Family History Son Cancer esophageal cancer Other Bleeding disorder CAD (coronary artery disease) Diabetes Heart disease Hypertension Lung disease Stroke Denies family history of Clotting disorder Dementia Hyperlipidemia Psychiatric illness Chronic kidney disease (CKD) Suicide Anesthesia complication Social History Smoking and tobacco status: former smoker Second hand smoke exposure: No Alcohol intake: current Alcohol intake frequency: holidays/special occasions only Alcohol type: beer Adopted: No Caregiver/support person: No Lives independently: No Household members: spouse Marital status: Current occupational status: retired History of recent travel: No Current gender identity: Male Data Anesthesia : 10/11/21 11:21 Short CBC 10/11/21 Range/Units 11:21 WBC 3.2 L (4.0-10.0) 10^3/uL Hgb 8.0 L (11.7-16.6) g/dL Hct 27.9 L (42.0-52.0) % MCV 73.8 L (80-94) fl Plt Count 174 (130-400) 10^3/cmm Cardiac Studies: Sestamibi Stress Test (Cardiology) 09/19/19
--- NOTE | 2021-10-11 13:20 | P.PCN_ITS ---
Bone Marrow Biopsy Bone Marrow Biopsy: I was consulted by [] office regarding bone marrow biopsy on Mati Wangdarnell[]. Briefly, the patient is a [86] year old [Male] with [Bicytopenia, anemia/leukopenia/neutropenia, Rule out MDS]. In the Outpatient Services Department, with nursing staff and laboratory technologists in attendance, the procedure was discussed with the patient. Appropriate consent form had been signed. Appropriate alternatives, benefits and risks of procedure were discussed with the patient and he was pre- operatively assessed with a history and physical by myself and cleared for the biopsy procedure. The patient did request IV sedation and that was provided by the Anesthesia Department. Under aseptic condition right posterior iliac area was cleaned and prepped, local anesthesia was given, 15 cc of bone marrow aspirate and core biopsy was obtained, patient tolerated procedure well, s baltazar was sent for routine histopathology, flow cytometry, cytogenetics and FISH for MDS, postprocedure nursing instructions were given Thank you for allowing me to participate in this patient's care and diagnosis. Coding Level of Care Code Acute Stock Wetter for Chg Fwd History Problem Focused Exam Problem Focused Medical Decision Making Straight Forward
[2021-10-11 13:22] VITALS: BP 90/61; PULSE 53; RESP 18; O2SAT 100
[2021-10-11 13:27] VITALS: BP 91/60; PULSE 54; RESP 16; O2SAT 99
--- NOTE | 2021-10-11 13:27 | PC.NURSE ---
1322 dressing to lower back clean dry and intact
[2021-10-11 13:37] VITALS: BP 103/59; PULSE 53; RESP 18; O2SAT 99
--- NOTE | 2021-10-11 13:38 | PC.NURSE ---
4514 dressing to lower back remains clean dry and intact. at bedside
--- NOTE | 2021-10-11 13:55 | PC.NURSE ---
1355 dressing remains clean dry and intact
--- NOTE | 2021-10-11 16:06 | ANE.PACU2 ---
Inpatient post-anesthesia follow up: Airway intact: Yes Vital signs: Temperature 97.3 F Pulse Rate 53 Respiratory Rate 18 Blood Pressure 103/59 Pulse Oximetry 99 Oxygen Delivery Me thod Room Air Oxygen Flow Rate Fraction of Inspir ed Oxygen Hydration adequate: Yes Nausea and vomiting: No Pain level: 1 Mental status: Baseline
[2021-10-13 06:03] LABS: Leukemia Profile (BBPL) See Report; Lymphoma Profile (BBPL) See Report
[2021-10-19 13:01] LABS: Miscellaneous Test See Scanned Lab Rpt
[2021-10-20 14:43] LABS: Miscellaneous Test See Scanned Lab Rpt
== END 2021-10-11 14:00 | disposition home or self-care (01) ==
PROVIDERS: PCP Family Medicine; Visit Provider Internal Medicine Hematology & Oncology
PROC: 07DT3ZX Extraction of Bone Marrow, Percutaneous Approach, Diagnostic (ICD-10-PCS; CPT 38222; principal; 2021-10-11 12:30)
DX: D64.9 Anemia, unspecified (principal); D70.9 Neutropenia, unspecified; G47.30 Sleep apnea, unspecified; E11.9 Type 2 diabetes mellitus without complications; I25.10 Atherosclerotic heart disease of native coronary artery without angina pectoris; Z95.5 Presence of coronary angioplasty implant and graft; I10 Essential (primary) hypertension; N40.1 Benign prostatic hyperplasia with lower urinary tract symptoms; N13.8 Other obstructive and reflux uropathy; Z85.51 Personal history of malignant neoplasm of bladder; Z98.1 Arthrodesis status; Z87.891 Personal history of nicotine dependence
CPT/HCPCS: 36415; 38222; 85007; 85025; 88184; 88185; 88305; 88311; J2704; J7030

== ENCOUNTER 2021-11-12 11:08 | Oncology outpatient (recurring) (ONCR) | payer MEDICARE, OTHER, SELFPAY ==
[2021-10-21 07:55] LABS: Hematocrit 27.3 % (42.0-52.0); Hemoglobin 8.2 g/dL (11.7-16.6); Lymphocytes # 1.5 10^3/uL (0.8-4.8); Lymphocytes % 50.7 %; Mean Corpuscular Hemoglobin 21.7 pg (28.0-34.0); Mean Corpuscular Volume 72.2 fl (80-94); Mean Platelet Volume 10.6 fL (7.4-10.4); Monocytes # 0.6 10^3/uL (0.2-0.9); Monocytes % 21.3 %; Neutrophils % 26.6 %; Nucleated Red Blood Cells % 0.7 %; Platelet Count 220 10^3/cmm (130-400); Red Blood Count 3.78 10^6/uL (4.1-5.3); Red Cell Distribution Width 14.9 % (12.1-15.1); White Blood Count 2.9 10^3/uL (4.0-10.0)
[2021-10-21 08:15] LABS: Alanine Aminotransferase 6 U/L (0-41); Alkaline Phosphatase 80 IU/L (40-130); Anion Gap 11.3 (5-19); Aspartate Amino Transferase 17 U/L (0-40); Blood Urea Nitrogen 10 mg/dL (8-23); Calcium 8.4 mg/dL (8.5-10.5); Carbon Dioxide 29 mmol/L (22-29); Chloride 98 mmol/L (98-107); Globulin 6.5 g/dL (1.3-4.6); Glucose 54 mg/dL (65-115); Osmolality Calculated 275 mOsm/kg (285-295); Potassium 4.3 mmol/L (3.5-5.1); Sodium 134 mmol/L (136-145); Total Bilirubin 0.6 mg/dL (0.15-1.2); Total Protein 9.5 g/dL (6.6-8.7)
[2021-10-21 08:21] LABS: Slide Review Slide Review Perform
[2021-10-21 08:24] LABS: Neutrophils # 0.76 10^3/uL (1.8-7.7)
[2021-10-21 10:36] LABS: Ferritin 219 ng/mL (30-400); Iron 26 ug/dL (59-158); Percent Saturation 14.2 % (20-50); Total Iron Binding Capacity 182 mcg/dl; Unsaturated Iron Binding 156 ug/dL (112-347)
[2021-10-21 10:52] LABS: Folate Level 8.3 ng/mL (4.5-32.2); Vitamin B12 480 pg/mL (232-1245)
[2021-10-22 06:27] LABS: PROTEIN, TOTAL 9.1 g/dL (6.1-8.1)
[2021-10-22 11:56] LABS: KAPPA LIGHT CHAIN, FREE, SERUM 154.9 mg/L (3.3-19.4); KAPPA/LAMBDA LIGHT CHAINS FREE 2.36 (0.26-1.65); LAMBDA LIGHT CHAIN, FREE, SERU 65.5 mg/L (5.7-26.3)
[2021-10-24 14:57] LABS: Copper Level 85 mcg/dL (70-175); Zinc Level, Serum or Plasma 89 mcg/dL (60-130)
[2021-11-04] VITALS (10 sets, daily range): BP systolic 103–120; BP diastolic 54–74; PULSE 61–64; RESP 18; TEMP 36.4–36.7; O2SAT 97–98
[2021-11-04 09:13] LABS: Hematocrit 22.5 % (42.0-52.0); Mean Corpuscular HGB Conc 28.9 g/dL (30.0-36.0); Mean Corpuscular Hemoglobin 21.7 pg (28.0-34.0); Mean Platelet Volume 11.5 fL (7.4-10.4); Platelet Count 183 10^3/cmm (130-400); Red Cell Distribution Width 19.8 % (12.1-15.1); White Blood Count 2.9 10^3/uL (4.0-10.0)
[2021-11-04 10:24] LABS: Absolute Segmented Neutrophil 0.5 10/cmm (1.6-7.1); Band Neutrophils Absolute 0.1 10^3/cmm (0.0-1.2); Eosinophils 1 %; Lymphocytes 58 %; Monocytes Absolute 0.2 10^3/cmm (0.1-0.6); Segmented Neutrophils 18 %; Slide Review Slide Review Perform; Total Cells Counted 100 (0-100)
[2021-11-04 10:25] LABS: Giant Platelets 1+; Lymphocytes Absolute 1.9 10^3/cmm (1.2-3.4); Macrocytosis Trace; Platelet Estimate Decreased (Normal)
[2021-11-04 10:26] LABS: Absolute Neutrophil 0.7 10^3/cmm (1.4-6.5)
[2021-11-04 10:27] LABS: Hemoglobin 6.5 g/dL (11.7-16.6)
[2021-11-04] MEDS: acetaminophen 325 mg Tablet 650 MG PO (11:56)
[2021-11-04] MEDS: diphenhydrAMINE 25 mg Capsule PO (11:56)
[2021-11-04] MEDS: sodium chloride 0.9% 100 mL Bag 50 ML IV (11:57)
[2021-11-04] MEDS: FUROsemide 10 mg/mL SDV 2mL 20 MG IVP (14:00)
[2021-11-04 17:09] LABS: Urine Appearance Clear (CLEAR); Urine Color Yellow (Yellow); pH Urine 5 (5-7)
[2021-11-04 17:10] LABS: Add Urine Culture? Yes; Bacteria Urine 1+ /hpf; Bilirubin Urine Neg (Negative); Blood Urine Neg (Negative); Glucose Urine UA Norm (Normal); Hyaline Casts Urine 0-4 /lpf; Ketones Urine Negative (Negative); Leukocyte Esterase Urine Negative (Negative); Nitrate Urine Negative (Negative); Protein Urine Neg (Negative); RBC Urine 0-4 /hpf (0-2); Squamous Epithelial Cell Urine 0-4 /hpf (0-5); Urobilinogen Urine Norm (Negative); WBC Urine 0-4 /hpf (0-5)
[2021-11-05 12:28] LABS: Erythropoietin 30.6 mIU/mL (2.6-18.5)
[2021-11-10 08:54] LABS: Hemoglobin 9.5 g/dL (11.7-16.6); Lymphocytes # 1.6 10^3/uL (0.8-4.8); Lymphocytes % 48.5 %; Mean Corpuscular HGB Conc 28.8 g/dL (30.0-36.0); Mean Corpuscular Hemoglobin 23.7 pg (28.0-34.0); Mean Corpuscular Volume 82.3 fl (80-94); Mean Platelet Volume 11.1 fL (7.4-10.4); Monocytes # 0.8 10^3/uL (0.2-0.9); Monocytes % 24.3 %; Neutrophils % 26.6 %; Nucleated Red Blood Cells % 0.9 %; Platelet Count 190 10^3/cmm (130-400); Red Blood Count 4.01 10^6/uL (4.1-5.3); Red Cell Distribution Width 20.6 % (12.1-15.1); White Blood Count 3.3 10^3/uL (4.0-10.0)
[2021-11-10 09:08] LABS: Neutrophils # 0.89 10^3/uL (1.8-7.7)
[2021-11-10 11:55] LABS: Alanine Aminotransferase 8 U/L (0-41); Albumin Level 3.3 g/dL (3.5-5.2); Alkaline Phosphatase 79 IU/L (40-130); Anion Gap 13.1 (5-19); Aspartate Amino Transferase 20 U/L (0-40); Blood Urea Nitrogen 13 mg/dL (8-23); Calcium 8.8 mg/dL (8.5-10.5); Carbon Dioxide 28 mmol/L (22-29); Chloride 97 mmol/L (98-107); Ferritin 187 ng/mL (30-400); Globulin 6.1 g/dL (1.3-4.6); Glucose 108 mg/dL (65-115); Iron 38 ug/dL (59-158); Osmolality Calculated 279 mOsm/kg (285-295); Percent Saturation 16.7 % (20-50); Potassium 4.1 mmol/L (3.5-5.1); Sodium 134 mmol/L (136-145); Total Bilirubin 0.7 mg/dL (0.15-1.2); Total Iron Binding Capacity 227 mcg/dl; Total Protein 9.4 g/dL (6.6-8.7); Unsaturated Iron Binding 189 ug/dL (112-347)
--- NOTE | 2021-11-10 14:41 | PC.NURSE ---
patient returned to office for additional lab draw which was taken peripherally from left ac space with vacu needle and he was given a 24 hour urine collection with instructions of how to obtain specimen.mm
[2021-11-10 15:53] LABS: Immunoglobulin IGA 766 mg/dL (70-400); Immunoglobulin IGG 3902 mg/dL (700-1600); Immunoglobulin IGM 81 mg/dL (40-230)
[2021-11-11 09:52] LABS: PROTEIN, TOTAL 9.4 g/dL (6.1-8.1)
[2021-11-12 07:08] LABS: ALBUMIN 3.3 g/dL (3.8-4.8); ALPHA 1 GLOBULIN 0.4 g/dL (0.2-0.3); ALPHA 2 GLOBULIN 0.8 g/dL (0.5-0.9); BETA 1 GLOBULIN 0.5 g/dL (0.4-0.6); BETA 2 GLOBULIN 0.6 g/dL (0.2-0.5); GAMMA GLOBULIN 3.9 g/dL (0.8-1.7)
[2021-11-13 13:17] LABS: CREATININE, 24 HOUR URINE 0.62 g/24 h (0.50-2.15); PROTEIN, TOTAL, 24 HR UR 110 mg/24 h (<150); Protein/Creatinine Ratio 0.177 (< OR = 0.114); Protein/Creatinine Ratio 177 mg/g creat (< OR = 114)
[2021-11-13 16:33] LABS: Copper Level 63 mcg/dL (70-175); Zinc Level, Serum or Plasma 78 mcg/dL (60-130)
[2021-11-15 16:17] LABS: ALBUMIN 100 %; ALPHA-1-GLOBULINS 0 %; ALPHA-2-GLOBULINS 0 %; BETA GLOBULINS 0 %; GAMMA GLOBULINS 0 %
== END 2021-11-14 23:59 | disposition home or self-care (01) ==
PROVIDERS: Nurse Practitioner Family; PCP Family Medicine; Visit Provider Internal Medicine Hematology & Oncology
DX: D46.9 Myelodysplastic syndrome, unspecified (principal)
CPT/HCPCS: 36415; 36430; 80053; 81001; 82525; 82607; 82668; 82728; 82746; 82784; 83540; 83550; 83655; 83883; 84155; 84156; 84165; 84166; 84630; 85007; 85025; 86334; 86850; 86900; 86920; 87086; 96375; 99203; 99214; J1940; P9016

== ENCOUNTER → 2021-11-22 10:35 | Outpatient (BNVA) | payer MEDICARE, OTHER, SELFPAY | PROVIDERS: PCP Family Medicine; Visit Provider Nurse Practitioner Family | DX: N40.0 Benign prostatic hyperplasia without lower urinary tract symptoms (principal); R30.0 Dysuria; N32.9 Bladder disorder, unspecified | CPT/HCPCS: 51798; 52000; 81003; 87086; 99214 ==

== ENCOUNTER → 2021-11-24 11:59 | Outpatient (BNVA) | payer MEDICARE, OTHER, SELFPAY | PROVIDERS: PCP Family Medicine; Visit Provider Nurse Practitioner Family | DX: D64.9 Anemia, unspecified (principal); E11.9 Type 2 diabetes mellitus without complications; K92.1 Melena; D46.9 Myelodysplastic syndrome, unspecified | CPT/HCPCS: 36415; 85025; 99214 ==

== ENCOUNTER 2021-12-01 08:15 | Day surgery (SDC) | payer MEDICARE, OTHER, SELFPAY ==
[2021-11-30 10:12] VITALS: BMI 26.4
[2021-12-01 08:33] VITALS: BP 117/64; PULSE 61; RESP 18; TEMP 36.3; O2SAT 94
[2021-12-01] MEDS: sodium chloride 0.9% 1,000 ML 30 ML IV (08:38)
--- NOTE | 2021-12-01 09:29 | W.PM.OPSUD ---
Surgery/Procedure H&P Update DATE OF PROCEDURE: December 01, 2021 DATE H&P PERFORMED: 11/10/21 CHANGES TO PREVIOUS DOCUMENTATION: none PREOP DIAGNOSIS: screening PLANNED PROCEDURE: Operation Date: 12/01/21 10:00 Proposed Procedures p EGD and colonoscopy [id number],K92.1,Z86.010,D50.9(Not Applicable) - DO juan diego Galdamez Colonoscopy(Not Applicable) - Fly Mayers DO
--- NOTE | 2021-12-01 09:38 | ANES.PREANE2 ---
Pre-Anesthetic Assessment Height/Weight: Height 1.68 m Weight 74.389 kg Temp Pulse Resp BP Pulse Ox O2 Del Method 97.3 F L 61 18 117/64 94 12/01/21 08:33 12/01/21 08:33 12/01/21 08:33 12/01/21 08:33 12/01/21 08:33 12/01/21 08:33 Preop Diagnosis: screening Operation Date: 12/01/21 10:00 Proposed Procedures p EGD and colonoscopy [id number],K92.1,Z86.010,D50.9(Not Applicable) - Fly Mayers DO s Colonoscopy(Not Applicable) - Fly Mayers DO Familial anesthetic complications: none Was Beta Kade taken within 24 hours: N/A Was Clonidine taken within 24 hours: N/A Last intake: Intake Last Liquid Date 11/30/21 Last Liquid Time 21:00 Last Solid Date 11/29/21 Last Solid Time 18:00 Social No alcohol and No tobacco Exam alert and oriented x 3 Airway Submandibular: within normal limits Cervical ROM: within normal limits Mallampati: Class II Dentition: full History/ROS No significant history except as noted Pulmonary None reported CV/HEM Hypertension None reported Hepatic None reported GI None reported Metabolic Diabetes Mellitus [facility] [place] None reported Neuropsych None reported Anesthetic Plan ASA status: 2 Anesthesia: Anesthesia Evaluation and MAC Risk of > 500 ml blood loss (7ml/kg in children): No Medications/Allergies Home Medications Medication Instructions Recorded Confirmed Last Taken Type fentanyl 100 mcg/hr transdermal 1 patch transdermal Q72H 06/14/19 12/01/21 11/30/21 History patch tamsulosin 0.4 mg capsule 0.4 mg PO DAILY 06/14/19 12/01/21 12/01/21 History temazepam 15 mg capsule 15 mg PO DAILY 06/14/19 12/01/21 11/30/21 History duloxetine 60 mg capsule,delayed 60 mg PO DAILY 06/08/21 12/01/21 11/30/21 History release hydromorphone 8 mg tablet 8 mg PO Q4H PRN Pain 06/08/21 12/01/21 11/30/21 History hydroxyzine pamoate 50 mg capsule 50 mg PO TID PRN Itching 06/08/21 12/01/21 11/30/21 History insulin glargine 100 unit/mL (3 25 unit SUBCUT .QHS 06/08/21 12/01/21 11/30/21 History mL) subcutaneous pen (Lantus Solostar U-100 Insulin) ketoconazole 2 % topical cream 1 applic topical BID PRN Allergy 09/30/21 12/01/21 11/30/21 History Symptoms mupirocin 2 % topical ointment 1 applic topical BID PRN Allergy 09/30/21 12/01/21 11/30/21 History Symptoms cholecalciferol (vitamin D3) 325 325 mcg PO DAILY 10/21/21 12/01/21 12/01/21 History mcg (13,000 unit) capsule folic acid 1 mg tablet 1 mg PO DAILY #30 tabs 11/10/21 12/01/21 11/30/21 Rx levofloxacin 500 mg tablet See Rx Instructions .Route 11/22/21 12/01/21 11/30/21 Rx .COMPLEX #30 tabs propranolol 10 mg tablet 10 mg PO DAILY 11/30/21 12/01/21 12/01/21 History Allergies Allergy/AdvReac Type Severity Reaction Status Date / Time No Known Allergies Allergy Verified 12/01/21 08:29 Current Medications Generic Name Dose Route Start Last Admin Trade Name Freq PRN Reason Stop Dose Admin Sodium Chloride 1,000 mls @ 30 mls/hr 12/01/21 08:30 12/01/21 08:38 Sodium Chloride 0.9% IV 12/02/21 08:29 30 mls/hr .Q24H ABRAHAM Administration PFSH Anesthesia Medical History (Updated 11/30/21 @ 08:28 by Mercedes Garza NP) BPH (benign prostatic hyperplasia) BPH w/o urinary obs/LUTS CAD (coronary artery disease) Chronic back pain Diabetes Hematochezia Hemoptysis History of bladder cancer History of prostatitis HTN (hypertension) MDS (myelodysplastic syndrome) Mild ascending aorta dilatation Surgical History History of bilateral knee replacement History of lumbar fusion Hx of heart artery stent Family History Son Cancer esophageal cancer Other Bleeding disorder CAD (coronary artery disease) Diabetes Heart disease Hypertension Lung disease Stroke Social History Smoking and tobacco status: former smoker Second hand smoke exposure: No Alcohol intake: current Alcohol intake frequency: holidays/special occasions only Alcohol type: beer Adopted: No Caregiver/support person: No Lives independently: No Household members: spouse Marital status: Current occupational status: retired History of recent travel: No Current gender identity: Male Data Anesthesia Cardiac Studies: Sestamibi Stress Test (Cardiology) 09/19/19
[2021-12-01 10:20] VITALS: BP 109/64; PULSE 57; RESP 18; TEMP 36.3; O2SAT 99
[2021-12-01 10:35] VITALS: BP 129/74; PULSE 59; RESP 18; TEMP 36.4; O2SAT 95
--- NOTE | 2021-12-01 12:00 | ANE.PACU2 ---
Inpatient post-anesthesia follow up: Airway intact: Yes Vital signs: Temperature 97.5 F Pulse Rate 59 Respiratory Rate 18 Blood Pressure 129/74 Pulse Oximetry 95 Oxygen Delivery Me thod Room Air Oxygen Flow Rate Fraction of Inspir ed Oxygen Hydration adequate: Yes Nausea and vomiting: No Pain level: 1 Mental status: Baseline
== END 2021-12-01 11:00 | disposition home or self-care (01) ==
PROVIDERS: PCP Family Medicine; Visit Provider Surgery
PROC: 0DJ08ZZ Inspection of Upper Intestinal Tract, Via Natural or Artificial Opening Endoscopic (ICD-10-PCS; CPT 43235; principal; 2021-12-01 10:00)
PROC: 0DJD8ZZ Inspection of Lower Intestinal Tract, Via Natural or Artificial Opening Endoscopic (ICD-10-PCS; CPT 45378; 2021-12-01 10:00)
DX: K92.1 Melena (principal); Z86.010 Personal history of colon polyps; K64.8 Other hemorrhoids; K29.50 Unspecified chronic gastritis without bleeding; B96.81 Helicobacter pylori [H. pylori] as the cause of diseases classified elsewhere; D50.9 Iron deficiency anemia, unspecified; I10 Essential (primary) hypertension; E11.9 Type 2 diabetes mellitus without complications; Z68.26 Body mass index [BMI] 26.0-26.9, adult; N40.1 Benign prostatic hyperplasia with lower urinary tract symptoms; N13.8 Other obstructive and reflux uropathy; I25.10 Atherosclerotic heart disease of native coronary artery without angina pectoris; Z95.5 Presence of coronary angioplasty implant and graft
CPT/HCPCS: 43239; 88305; 88342; G0121; J2704; J7030

== ENCOUNTER → 2021-12-06 13:51 | Outpatient (BNVA) | payer MEDICARE, OTHER, SELFPAY | PROVIDERS: PCP Family Medicine; Referring Provider Nurse Practitioner Family; Visit Provider Internal Medicine Critical Care Medicine | DX: R04.2 Hemoptysis (principal); D64.9 Anemia, unspecified; J31.0 Chronic rhinitis; J32.9 Chronic sinusitis, unspecified; D70.9 Neutropenia, unspecified; Z87.891 Personal history of nicotine dependence | CPT/HCPCS: 80053; 83615; 85025; 85610; 85651; 85730; 86038; 86140; 86431; 99204 ==

== ENCOUNTER 2021-12-15 08:00 | Oncology outpatient (recurring) (ONCR) | payer MEDICARE, OTHER, SELFPAY ==
[2021-11-24 12:25] LABS: Hematocrit 27.3 % (42.0-52.0); Hemoglobin 7.9 g/dL (11.7-16.6); Lymphocytes # 1.5 10^3/uL (0.8-4.8); Lymphocytes % 44.1 %; Mean Corpuscular HGB Conc 28.9 g/dL (30.0-36.0); Mean Corpuscular Hemoglobin 23.2 pg (28.0-34.0); Mean Corpuscular Volume 80.3 fl (80-94); Mean Platelet Volume 10.9 fL (7.4-10.4); Monocytes # 0.9 10^3/uL (0.2-0.9); Monocytes % 24.8 %; Neutrophils # 1.04 10^3/uL (1.8-7.7); Neutrophils % 29.9 %; Nucleated Red Blood Cells % 0 %; Platelet Count 153 10^3/cmm (130-400); Red Cell Distribution Width 19.1 % (12.1-15.1); White Blood Count 3.5 10^3/uL (4.0-10.0)
[2021-11-25] VITALS (9 sets, daily range): BP systolic 87–112; BP diastolic 42–68; PULSE 48–69; RESP 18–20; TEMP 36–37.2; O2SAT 94–98
[2021-11-25] MEDS: acetaminophen 325 mg Tablet 650 MG PO (09:16)
[2021-11-25] MEDS: sodium chloride 0.9% 100 mL Bag 250 ML IV (09:17)
[2021-11-25] MEDS: diphenhydrAMINE 25 mg Capsule PO (09:17)
[2021-11-25] MEDS: FUROsemide 10 mg/mL SDV 2mL 20 MG IVP (11:41)
[2021-12-08 11:44] LABS: Hematocrit 34.5 % (42.0-52.0); Hemoglobin 10.1 g/dL (11.7-16.6); Lymphocytes # 1.3 10^3/uL (0.8-4.8); Lymphocytes % 50.8 %; Mean Corpuscular HGB Conc 29.3 g/dL (30.0-36.0); Mean Corpuscular Hemoglobin 23.9 pg (28.0-34.0); Mean Corpuscular Volume 81.6 fl (80-94); Mean Platelet Volume 10.8 fL (7.4-10.4); Monocytes # 0.6 10^3/uL (0.2-0.9); Monocytes % 23.4 %; Neutrophils % 25.4 %; Nucleated Red Blood Cells % 0 %; Platelet Count 154 10^3/cmm (130-400); Red Blood Count 4.23 10^6/uL (4.1-5.3); Red Cell Distribution Width 18.9 % (12.1-15.1); White Blood Count 2.5 10^3/uL (4.0-10.0)
[2021-12-08 12:02] LABS: Alanine Aminotransferase < 5 U/L (0-41); Albumin Level 3.3 g/dL (3.5-5.2); Alkaline Phosphatase 82 U/L (40-130); Anion Gap 10.4 (5-19); Aspartate Amino Transferase 14 U/L (0-40); Blood Urea Nitrogen 12 mg/dL (8-23); Calcium 8.6 mg/dL (8.5-10.5); Carbon Dioxide 30 mmol/L (22-29); Chloride 97 mmol/L (98-107); Globulin 5.9 g/dL (1.3-4.6); Glucose 80 mg/dL (65-115); Osmolality Calculated 275 mOsm/kg (285-295); Potassium 4.4 mmol/L (3.5-5.1); Sodium 133 mmol/L (136-145); Total Bilirubin 0.7 mg/dL (0.15-1.2); Total Protein 9.2 g/dL (6.6-8.7)
[2021-12-08 12:23] LABS: Neutrophils # 0.63 10^3/uL (1.8-7.7)
[2021-12-15 08:12] LABS: Hematocrit 32.3 % (42.0-52.0); Hemoglobin 9.7 g/dL (11.7-16.6); Lymphocytes # 1.3 10^3/uL (0.8-4.8); Mean Corpuscular Hemoglobin 23.9 pg (28.0-34.0); Mean Corpuscular Volume 79.6 fl (80-94); Monocytes # 0.5 10^3/uL (0.2-0.9); Monocytes % 21.1 %; Neutrophils % 25.1 %; Nucleated Red Blood Cells % 0.8 %; Platelet Count 103 10^3/cmm (130-400); Red Blood Count 4.06 10^6/uL (4.1-5.3); Red Cell Distribution Width 18.9 % (12.1-15.1); White Blood Count 2.5 10^3/uL (4.0-10.0)
[2021-12-15 08:26] LABS: Alanine Aminotransferase < 5 U/L (0-41); Albumin Level 3.1 g/dL (3.5-5.2); Alkaline Phosphatase 82 U/L (40-130); Anion Gap 10.7 (5-19); Aspartate Amino Transferase 14 U/L (0-40); Blood Urea Nitrogen 20 mg/dL (8-23); Calcium 8.6 mg/dL (8.5-10.5); Carbon Dioxide 28 mmol/L (22-29); Chloride 98 mmol/L (98-107); Globulin 5.8 g/dL (1.3-4.6); Glucose 70 mg/dL (65-115); Osmolality Calculated 277 mOsm/kg (285-295); Potassium 3.7 mmol/L (3.5-5.1); Sodium 133 mmol/L (136-145); Total Bilirubin 0.6 mg/dL (0.15-1.2); Total Protein 8.9 g/dL (6.6-8.7)
[2021-12-15 09:16] LABS: Add RBC Morph Yes; Hypochromasia 3+; Neutrophils # 0.62 10^3/uL (1.8-7.7); RBC Morph Comp No
[2021-12-15 09:17] LABS: Target Cells Trace
[2021-12-15] MEDS: cyanocobalamin 1,000 mcg/mL SDV 1000 MCG IM (10:38)
== END 2021-12-15 23:59 | disposition home or self-care (01) ==
PROVIDERS: Nurse Practitioner; Nurse Practitioner Family; PCP Family Medicine; Visit Provider Internal Medicine Hematology & Oncology
DX: Z79.899 Other long term (current) drug therapy; D46.9 Myelodysplastic syndrome, unspecified; D50.9 Iron deficiency anemia, unspecified; Z86.010 Personal history of colon polyps; Z87.891 Personal history of nicotine dependence; Z87.440 Personal history of urinary (tract) infections
CPT/HCPCS: 36415; 36430; 80053; 85025; 86850; 86900; 86920; 96372; 96375; 99212; 99214; J1940; J3420; P9016

== ENCOUNTER → 2021-12-21 07:56 | Outpatient (BNVA) | payer MEDICARE, OTHER, SELFPAY | PROVIDERS: PCP Family Medicine; Visit Provider Urology | DX: R30.0 Dysuria (principal); N41.9 Inflammatory disease of prostate, unspecified; N40.0 Benign prostatic hyperplasia without lower urinary tract symptoms | CPT/HCPCS: 51741; 51798; 81003; 99213 ==

== ENCOUNTER 2022-01-04 14:00 | Oncology outpatient (recurring) (ONCR) | payer MEDICARE, OTHER, SELFPAY ==
--- NOTE | 2021-12-27 11:59 | CT_ITS ---
WS: [id number] CT CHEST WITH INTRAVENOUS CONTRAST HISTORY: Hemoptysis TECHNIQUE: Contiguous 5 mm axial imaging performed on the thorax. Coronal and sagittal reformats are submitted. All CT scans at [facility] use at least one of these dose optimization techniques: automated exposure control; mA and/or kV adjustment per patient size (includes targeted exams where dose is matched to clinical indication); or iterative reconstruction. CONTRAST: Omnipaque 350; 95 mL IV. DLP: 660.68 mGy.cm COMPARISON: 04/29/2019 Lungs and central airway: Pulmonary hyperexpansion. Peripheral reticulations and mild groundglass att enuation greatest in the lower lung pham. No honeycombing. Numerous bilateral calcified granulomata . In the LEFT upper lobe tree-in-bud opacifications are new. Pleura: Normal. No pleural effusion. Heart and pericardium: Mild cardiomegaly. No pericardial effusion. Mediastinum and alexia: Indeterminate bilateral hilar lymph nodes with the largest measuring 10 mm on t he RIGHT. Vessels: Mild ectasia ascending aorta with no aneurysm. Mild atherosclerosis aorta. Pulmonary artery is dilated at 3.5 cm. Chest wall and lower neck: No soft tissue masses. Upper abdomen: Small hiatal hernia. Mild perinephric stranding. No adrenal mass. Osseous structures: Thoracic spondylosis. CT/CT chest w con* [id number] IMPRESSION: 1. Mild peripheral reticulations and groundglass attenuation in the lower lung pham. This can be seen with early changes of pulmonary fibrosis. No honeycom bharath. 2. Mild tree-in-bud opacification LEFT upper lobe. Consider endobronchial pneu monia and aspiration pneumonia. 3. Prior granulomatous disease. 4. Mild atherosclerosis aorta.
[2021-12-27] MEDS: iohexol 350 mg/mL 100 mL Btl IV (12:49)
[2021-12-28] MEDS: sodium chloride 0.9% 250 ML 75 ML IV (14:50)
[2021-12-28] MEDS: ferric carboxy (IVPB) 750 MG in sodium chloride 0.9% (100 ml) 100 ML 345 MG IV (14:55)
[2021-12-28 15:40] VITALS: BP 113/59; PULSE 64; RESP 16; TEMP 36.3; O2SAT 96
[2022-01-04] MEDS: sodium chloride 0.9% 250 ML 75 ML IV (14:01)
[2022-01-04] MEDS: ferric carboxy (IVPB) 750 MG in sodium chloride 0.9% (100 ml) 100 ML 345 MG IV (14:05)
[2022-01-04 14:54] VITALS: BP 143/83; PULSE 60; RESP 18; TEMP 36.2; O2SAT 99
== END 2022-01-14 23:59 | disposition home or self-care (01) ==
PROVIDERS: PCP Family Medicine; Visit Provider Internal Medicine Hematology & Oncology
DX: D50.9 Iron deficiency anemia, unspecified (principal); D46.9 Myelodysplastic syndrome, unspecified; R04.2 Hemoptysis
CPT/HCPCS: 71260; 96365; J1439; J7050

== ENCOUNTER 2022-02-17 12:12 | Oncology outpatient (recurring) (ONCR) | payer MEDICARE, OTHER, SELFPAY ==
[2022-02-17 12:59] LABS: Hematocrit 30.2 % (42.0-52.0); Hemoglobin 8.9 g/dL (11.7-16.6); Lymphocytes # 1.4 10^3/uL (0.8-4.8); Lymphocytes % 28.8 %; Mean Corpuscular HGB Conc 29.5 g/dL (30.0-36.0); Mean Corpuscular Hemoglobin 22.9 pg (28.0-34.0); Mean Corpuscular Volume 77.6 fl (80-94); Mean Platelet Volume 11.4 fL (7.4-10.4); Monocytes # 1.3 10^3/uL (0.2-0.9); Monocytes % 26.7 %; Neutrophils # 2.08 10^3/uL (1.8-7.7); Neutrophils % 43.7 %; Nucleated Red Blood Cells % 0.4 %; Platelet Count 293 10^3/cmm (130-400); Red Blood Count 3.89 10^6/uL (4.1-5.3); Red Cell Distribution Width 15.7 % (12.1-15.1); White Blood Count 4.8 10^3/uL (4.0-10.0)
[2022-02-17 13:18] LABS: Iron 19 ug/dL (59-158); Total Iron Binding Capacity 146 mcg/dl; Unsaturated Iron Binding 127 ug/dL (112-347)
[2022-02-17 13:35] LABS: Ferritin 1092 ng/mL (30-400)
[2022-02-17 14:43] LABS: Reticulocyte % 2.6 % (0.5-2.0)
[2022-02-17 14:54] LABS: Alanine Aminotransferase 10 U/L (0-41); Albumin Level 3.2 g/dL (3.5-5.2); Alkaline Phosphatase 74 U/L (40-130); Anion Gap 11.4 (5-19); Aspartate Amino Transferase 22 U/L (0-40); Blood Urea Nitrogen 16 mg/dL (8-23); Calcium 8.5 mg/dL (8.5-10.5); Carbon Dioxide 28 mmol/L (22-29); Chloride 97 mmol/L (98-107); Globulin 5.7 g/dL (1.3-4.6); Glucose 69 mg/dL (65-115); Lactate Dehydrogenase 238 U/L (135-225); Osmolality Calculated 276 mOsm/kg (285-295); Potassium 3.4 mmol/L (3.5-5.1); Sodium 133 mmol/L (136-145); Total Bilirubin 0.4 mg/dL (0.15-1.2); Total Protein 8.9 g/dL (6.6-8.7)
[2022-02-17 15:08] LABS: LAB Peripheral Smear Sent for Review
== END 2022-03-16 23:59 | disposition home or self-care (01) ==
PROVIDERS: PCP Family Medicine; Visit Provider Internal Medicine Hematology & Oncology
DX: D50.9 Iron deficiency anemia, unspecified (principal); D46.9 Myelodysplastic syndrome, unspecified; R74.8 Abnormal levels of other serum enzymes; K64.8 Other hemorrhoids; K52.9 Noninfective gastroenteritis and colitis, unspecified; Z79.899 Other long term (current) drug therapy; Z87.891 Personal history of nicotine dependence
CPT/HCPCS: 36415; 80053; 82728; 83010; 83540; 83550; 83615; 85025; 85045; 99214

== ENCOUNTER → 2022-03-09 13:57 | Outpatient (BNVA) | payer MEDICARE, OTHER, SELFPAY | PROVIDERS: PCP Family Medicine; Visit Provider Urology | DX: N40.0 Benign prostatic hyperplasia without lower urinary tract symptoms (principal); R30.0 Dysuria; N41.9 Inflammatory disease of prostate, unspecified | CPT/HCPCS: 81003; 99213 ==

== ENCOUNTER 2022-04-04 00:56 | Emergency (ER) | payer MEDICARE, OTHER, SELFPAY ==
[2022-04-04 00:58] VITALS: BMI 25.8
[2022-04-04 01:00] VITALS: BP 166/78; PULSE 88; RESP 16; TEMP 36.8; O2SAT 97
--- NOTE | 2022-04-04 01:22 | CTR_ITS ---
PROCEDURE INFORMATION: Exam: CT Abdomen And Pelvis With Contrast Exam date and time: 04/04/2022 2:07 AM Age: 86 years old Clinical indication: Abdominal pain; Epigastric; Patient HX: HX bladder CA, lumbar fusion and heart stent; Additional info: Epigastric abd pain TECHNIQUE: Imaging protocol: Computed tomography of the abdomen and pelvis with contrast. Radiation optimization: All CT scans at this facility use at least one of these dose optimization techniques: automated exposure control; mA and/or kV adjustment per patient size (includes targeted exams where dose is matched to clinical indication); or iterative reconstruction. Contrast material: OMNI 350; Contrast volume: 100 ml; Contrast route: INTRAVENOUS (IV); COMPARISON: CR XR abdomen 1V* [id number] 10/26/2018 8:30 AM RADIATION DOSE METRICS: Total DLP (mGy-cm): 729.55 FINDINGS: Coronary arteries: Severe calcified coronary artery disease. Liver: Normal. No mass. Gallbladder and bile ducts: Enlarged greater than or equal to 5.0 cm transverse diameter gallbladder consistent with gallbladder hydrops. Pancreas: Normal. No ductal dilation. Spleen: Normal. No splenomegaly. Adrenal glands: Normal. No mass. Kidneys and ureters: Right renal simple cyst measuring >1.0 cm . Stomach and bowel: Unremarkable. No obstruction. No mucosal thickening. Appendix: No evidence of appendicitis. Intraperitoneal space: Unremarkable. No free air. No significant fluid collection. Vasculature: Calcification of the abdominal aorta and/or iliac arteries consistent with atherosclerotic vessel disease. Lymph nodes: Calcified bilateral hilar nodes and/or mediastinal nodes and/or lung granulomas consistent with old granulomatous disease. Urinary bladder: Unremarkable as visualized. Reproductive: Unremarkable as visualized. Bones/joints: Severe multilevel spine degenerative changes including degenerative disc disease, spondylosis and facet degenerative changes. Soft tissues: Unremarkable. Other findings: Stable postoperative changes over the lumbar spine with metallic fixation and metallic artifact. CT/CT abdomen pelvis w con* [id number] IMPRESSION: Enlarged greater than or equal to 5.0 cm transverse diameter gallbladder consistent with gallbladder hydrops. COMMENTS: Consistent with the [employer]'s Incidental Findings Committee white paper (J Am Andreas Radiol 2018): Any incidental renal lesion less than 1 cm or classified as too small to characterize, or any incidental cystic renal lesion characterized as simple-appearing, is likely benign. No follow-up imaging is recommended for these lesions per consensus recommendations based on imaging criteria.
--- NOTE | 2022-04-04 01:22 | ED_ITS ---
Documented by User: WILLY Hightower 04/04/22 02:43 HPI - Abdominal Pain General: Chief Complaint: Abdominal Pain Stated Complaint: generalized abdominal pain Time Seen by Provider: 04/04/22 01:05 History of Present Illness: 86-year-old male patient comes in today with complaints of mid abdominal pain. Patient reports nausea. Patient has had a nguyễn wel movement today of soft stool. Patient does have chronic constipation due to narcotic use. Patient has chronic back pain, myelodysplastic syndrome, BPH, lesion of the bladder, microcytic anemia, coronary artery disease, hypertension, and diabetes, H. pylori gastritis. Patient has had surgery on his back with lumbar fusion. Patient lives at home with his spouse. Associated Symptoms: Reports constipation and nausea; Denies diarrhea, fever(s) and vomiting Review of Systems Const: Denies: fever(s) Card: Denies: chest pain Resp: Denies: dyspnea GI: Reports: abdominal pain, nausea and constipation; Denies: vomiting or diarrhea Musc: Reports: back pain PFSH ED PFSH: Medical History BPH (benign prostatic hyperplasia) BPH w/o urinary obs/LUTS CAD (coronary artery disease) Chronic back pain Diabetes Hematochezia Hemoptysis History of bladder cancer History of prostatitis HTN (hypertension) MDS (myelodysplastic syndrome) Mild ascending aorta dilatation Surgical History History of bilateral knee replacement History of lumbar fusion Hx of heart artery stent Family History Son Cancer esophageal cancer Mother , at age 82 Heart disease Father , at age 82 Lung disease Other Bleeding disorder CAD (coronary artery disease) Diabetes Hypertension Stroke Social History Smoking and tobacco status: former smoker (15 year smoker) Quit status (tobacco): has quit using tobacco Year quit tobacco: 1977 Former quit date comment: 0.5 ppd X 20 years Second hand smoke exposure: No Alcohol intake: current Alcohol intake frequency: holidays/special occasions only Alcohol type: beer Adopted: No Caregiver/support person: No Lives independently: No Household members: spouse Marital status: Current occupational status: retired History of recent travel: No Current gender identity: Male Physical Exam Const: COMMON NORMALS: alert HENMT: COMMON NORMALS: normocephalic HEAD & SCALP: normocephalic Neck/C-Spine: COMMON NORMALS: full ROM Lymph: LYMPHATIC: no lymphadenopathy noted Resp: COMMON NORMALS: normal respiratory effort and clear to auscultation bilaterally AUSCULTATION: clear to auscultation bilaterally Cardio: COMMON NORMALS: regular rate and regular rhythm RATE: regular rate RHYTHM: regular rhythm GI: COMMON NORMALS: Soft to palpation AUSCULTATION: Yes normoactive bowel sounds PALPATION: Yes Soft to palpation and Yes Tenderness to palpation present (GI) (Generalized tenderness.) Extremity: COMMON NORMALS: no pedal edema Neuro: SENSORIUM/ORIENTATION: Yes alert Skin: COMMON NORMALS: turgor normal GENERAL SKIN EXAM: turgor normal Course Vital Signs: Vital signs: Vital Signs Temperature 98.3 F 04/04/22 01:00 Pulse Rate 88 04/04/22 01:00 Respiratory Rate 16 04/04/22 01:00 Blood Pressure 166/78 04/04/22 01:00 Pulse Oximetry 97 04/04/22 01:00 Oxygen Delivery Me thod 04/04/22 01:00 MDM - Abdominal Pain Medical Decision Making 86-year-old male patient comes in today with mid abdominal pain. Patient reports no fever. Patient reports a history of constipation with a small bowel movement today. Patient reports nausea without vomiting. On exam abdomen soft with some epigastric tenderness on palpation. Respirations are even lungs are clear to auscultation. Vital signs normal except for some mild elevation of blood pressure at 166 systolic. Differential diagnosis includes but not limited to constipation, diverticulitis, bowel obstruction, pancreatitis, gastritis. Lab Data 04/04/22 01:08 04/04/22 01:08 Labs/Radiology: Radiology Impressions Abdomen/Pelvis CT 04/04/22 01:22 IMPRESSION: Enlarged greater than or equal to 5.0 cm transverse diameter gallbladder consistent with gallbladder hydrops. COMMENTS: Consistent with the [employer]'s Incidental Findings Committee white paper (J Am Andreas Radiol 2018): Any incidental renal lesion less than 1 cm or classified as too small to characterize, or any incidental cystic renal lesion characterized as simple-appearing, is likely benign. No follow-up imaging is recommended for these lesions per consensus recommendations based on imaging criteria. Laboratory Results WBC 5.6 10^3/uL (4.0-10.0) 04/04/22 01:08 RBC 3.93 10^6/uL (4.1-5.3) L 04/04/22 01:08 Hgb 8.5 g/dL (11.7-16.6) L 04/04/22 01:08 Hct 28.8 % (42.0-52.0) L 04/04/22 01:08 MCV 73.3 fl (80-94) L 04/04/22 01:08 MCH 21.6 pg (28.0-34.0) L 04/04/22 01:08 MCHC 29.5 g/dL (30.0-36.0) L 04/04/22 01:08 RDW 14.4 % (12.1-15.1) 04/04/22 01:08 Plt Count 453 10^3/cmm (130-400) H 04/04/22 01:08 MPV 11.9 fL (7.4-10.4) H 04/04/22 01:08 Neut % (Auto) 24.6 % 04/04/22 01:08 Lymph % (Auto) 38.3 % 04/04/22 01:08 Cassia % (Auto) 36.0 % 04/04/22 01:08 Eos % (Auto) 0.0 % 04/04/22 01:08 Baso % (Auto) 0.2 % 04/04/22 01:08 Neut # (Auto) 1.38 10^3/uL (1.8-7.7) L 04/04/22 01:08 Lymph # (Auto) 2.1 10^3/uL (0.8-4.8) 04/04/22 01:08 Cassia # (Auto) 2.0 10^3/uL (0.2-0.9) H 04/04/22 01:08 Eos # (Auto) 0.0 10^3/uL (0.0-0.8) 04/04/22 01:08 Baso # (Auto) 0.0 10^3/uL (0.0-0.1) 04/04/22 01:08 Nucleated RBC % (auto) 1.1 % 04/04/22 01:08 Nucleated RBCs # 0.1 /100WBC 04/04/22 01:08 Sodium 134 mmol/L (136-145) L 04/04/22 01:08 Potassium 3.7 mmol/L (3.5-5.1) 04/04/22 01:08 Chloride 93 mmol/L (98-107) L 04/04/22 01:08 Carbon Dioxide 30 mmol/L (22-29) H 04/04/22 01:08 Anion Gap 14.7 (5-19) 04/04/22 01:08 BUN 8 mg/dL (8-23) 04/04/22 01:08 Creatinine 0.6 mg/dL (0.7-1.2) L 04/04/22 01:08 GFR Calculation Not Reportable 04/04/22 01:08 Glucose 98 mg/dL (65-115) 04/04/22 01:08 Calculated Osmolality 276 mOsm/kg (285-295) L 04/04/22 01:08 Calcium 8.6 mg/dL (8.5-10.5) 04/04/22 01:08 Total Bilirubin 0.4 mg/dL (0.15-1.2) 04/04/22 01:08 AST 21 U/L (0-40) 04/04/22 01:08 ALT 15 U/L (0-41) 04/04/22 01:08 Alkaline Phosphatase 105 U/L (40-130) 04/04/22 01:08 Total Protein 8.7 g/dL (6.6-8.7) 04/04/22 01:08 Albumin 3.1 g/dL (3.5-5.2) L 04/04/22 01:08 Globulin 5.6 g/dL (1.3-4.6) H 04/04/22 01:08 Lipase 11 U/L (13-60) L 04/04/22 01:08 Discharge Plan Discharge Patient Disposition: Home Clinical Impression: Constipation Condition: Stable Prescriptions: New Citrate of Magnesia Solution 296 ml PO DAILY PRN (Reason: constipation) Qty: 296 0RF No Action fentanyl 100 mcg/hr patch 72 hour 1 patch TRANSDERMA Q72H temazepam 15 mg capsule 15 mg PO DAILY tamsulosin 0.4 mg capsule 0.4 mg PO BID duloxetine 60 mg capsule,delayed release(DR/EC) 60 mg PO DAILY hydroxyzine pamoate 50 mg capsule 50 mg PO TID PRN (Reason: Itching) hydromorphone 8 mg tablet 8 mg PO Q4H PRN (Reason: Pain) Lantus Solostar U-100 Insulin 100 unit/mL (3 mL) insulin pen 25 unit SUBCUT .QHS Rx Instructions: 15 units [id number] cholecalciferol (vitamin D3) 325 mcg (13,000 unit) capsule 325 mcg PO DAILY folic acid 1 mg tablet 1 mg PO DAILY Qty: 30 0RF clarithromycin 500 mg tablet 500 mg PO BID 14 Days Qty: 28 0RF pantoprazole [Protonix] 40 mg tablet,delayed release (DR/EC) 40 mg PO BID 14 Days Qty: 28 0RF ketoconazole 2 % cream 1 applic topical BID PRN (Reason: Allergy Symptoms) Rx Instructions: Apply to affected areas in the corners of the mouth 1-2 times daily mupirocin 2 % ointment 1 applic topical BID PRN (Reason: Allergy Symptoms) Rx Instructions: Apply to affected area on forehead until healed levofloxacin 500 mg tablet See Rx Instructions .ROUTE .COMPLEX Qty: 30 1RF Rx Instructions: 1 tab daily for 1 week then 1/2 tab daily there after; clobetasol 0.05 % ointment 1 applic topical BID 14 Days Qty: 60 1RF Rx Instructions: Apply to affected area no more than 2 wk/mo. Not for face/skin folds.Alternate w/ Triamcinolone triamcinolone acetonide 0.1 % ointment 1 applic topical BID Qty: 453.6 1RF Rx Instructions: Apply to affected area no more than 2 weeks per month. Not for face. fluticasone propionate [Flonase Allergy Relief] 50 mcg/actuation spray,suspension 1 spray intranasal Q12H 30 Days Qty: 16 3RF Rx Instructions: administer into each nostril propranolol 10 mg tablet 10 mg PO DAILY Discharge Orders: Discharge ED (Routine); Ordered 04/04/22 Ordered By: Favian Noonan Referrals: Juliane Chen DO [Primary Care Provider] - 1-3 days Patient Instructions: Constipation (ED), Opioid Safety, Pain Management Activity Restrictions/Additional Instructions: Return for fever greater than 100, vomiting liquids or medications, worsening pain despite adequate treatment, any other concerning symptoms. Follow-up with your doctor early this week. Take the medication you were prescribed and dispensed this morning when you get home. Fill the prescription you were given. If the medication that was dispensed to you does not provide adequate relief of constipation, take the medication prescribed. Coding Level of Care Code ED Clinical Transformation Specialist for Chg Fwd Exam Comprehensive Documented by User: Favian Noonan DO 04/04/22 04:03 HPI - Abdominal Pain General: Chief Complaint: Abdominal Pain Stated Complaint: generalized abdominal pain Time Seen by Provider: 04/04/22 01:05 PFSH ED PFSH: Medical History BPH (benign prostatic hyperplasia) BPH w/o urinary obs/LUTS CAD (coronary artery disease) Chronic back pain Diabetes Hematochezia Hemoptysis History of bladder cancer History of prostatitis HTN (hypertension) MDS (myelodysplastic syndrome) Mild ascending aorta dilatation Surgical History History of bilateral knee replacement History of lumbar fusion Hx of heart artery stent Family History Son Cancer esophageal cancer Mother , at age 82 Heart disease Father , at age 82 Lung disease Other Bleeding disorder CAD (coronary artery disease) Diabetes Hypertension Stroke Social History Smoking and tobacco status: former smoker (15 year smoker) Quit status (tobacco): has quit using tobacco Year quit tobacco: 1977 Former quit date comment: 0.5 ppd X 20 years Second hand smoke exposure: No Alcohol intake: current Alcohol intake frequency: holidays/special occasions only Alcohol type: beer Adopted: No Caregiver/support person: No Lives independently: No Household members: spouse Marital status: Current occupational status: retired History of recent travel: No Current gender identity: Male Course Vital Signs: Vital signs: Vital Signs Temperature 98.3 F 04/04/22 01:00 Pulse Rate 88 04/04/22 01:00 Respiratory Rate 16 04/04/22 01:00 Blood Pressure 166/78 04/04/22 01:00 Pulse Oximetry 97 04/04/22 01:00 Oxygen Delivery Me thod 04/04/22 01:00 MDM - Abdominal Pain Medical Decision Making 86-year-old male patient comes in today with mid abdominal pain. Patient reports no fever. Patient reports a history of constipation with a small bowel movement today. Patient reports nausea without vomiting. On exam abdomen soft with some epigastric tenderness on palpation. Respirations are even lungs are clear to auscultation. Vital signs normal except for some mild elevation of b lood pressure at 166 systolic. Differential diagnosis includes but not limited to constipation, diverticulitis, bowel obstruction, pancreatitis, gastritis. This patient was originally seen by WILLY Fish.? I agree with his history, evaluation, and treatment. Laboratory shows a white blood cell count of 5. Hemoglobin of 8.5 which is essentially stable from prior. Platelet count is 453. Liver enzymes are normal. Lipase is 11. CT shows an enlarged gallbladder, but without distinct inflammatory or infectious changes. There is increased stool and gas burden, with no obstruction. No definite cause of belly pain identified otherwise. He is on chronic opioid therapy, which can cause some constipation, and notes no significant bowel movement for the past 3 days or so although he did have a small bowel movement that was soft yesterday. He will be allowed home with treatment for constipation and strict return guidelines. Lab Data 04/04/22 01:08 04/04/22 01:08 Labs/Radiology: Radiology Impressions Abdomen/Pelvis CT 04/04/22 01:22 IMPRESSION: Enlarged greater than or equal to 5.0 cm transverse diameter gallbladder consistent with gallbladder hydrops. COMMENTS: Consistent with the [employer]'s Incidental Findings Committee white paper (J Am Andreas Radiol 2018): Any incidental renal lesion less than 1 cm or classified as too small to characterize, or any incidental cystic renal lesion characterized as simple-appearing, is likely benign. No follow-up imaging is recommended for these lesions per consensus recommendations based on imaging criteria. Laboratory Results WBC 5.6 10^3/uL (4.0-10.0) 04/04/22 01:08 RBC 3.93 10^6/uL (4.1-5.3) L 04/04/22 01:08 Hgb 8.5 g/dL (11.7-16.6) L 04/04/22 01:08 Hct 28.8 % (42.0-52.0) L 04/04/22 01:08 MCV 73.3 fl (80-94) L 04/04/22 01:08 MCH 21.6 pg (28.0-34.0) L 04/04/22 01:08 MCHC 29.5 g/dL (30.0-36.0) L 04/04/22 01:08 RDW 14.4 % (12.1-15.1) 04/04/22 01:08 Plt Count 453 10^3/cmm (130-400) H 04/04/22 01:08 MPV 11.9 fL (7.4-10.4) H 04/04/22 01:08 Neut % (Auto) 24.6 % 04/04/22 01:08 Lymph % (Auto) 38.3 % 04/04/22 01:08 Cassia % (Auto) 36.0 % 04/04/22 01:08 Eos % (Auto) 0.0 % 04/04/22 01:08 Baso % (Auto) 0.2 % 04/04/22 01:08 Neut # (Auto) 1.38 10^3/uL (1.8-7.7) L 04/04/22 01:08 Lymph # (Auto) 2.1 10^3/uL (0.8-4.8) 04/04/22 01:08 Cassia # (Auto) 2.0 10^3/uL (0.2-0.9) H 04/04/22 01:08 Eos # (Auto) 0.0 10^3/uL (0.0-0.8) 04/04/22 01:08 Baso # (Auto) 0.0 10^3/uL (0.0-0.1) 04/04/22 01:08 Nucleated RBC % (auto) 1.1 % 04/04/22 01:08 Nucleated RBCs # 0.1 /100WBC 04/04/22 01:08 Sodium 134 mmol/L (136-145) L 04/04/22 01:08 Potassium 3.7 mmol/L (3.5-5.1) 04/04/22 01:08 Chloride 93 mmol/L (98-107) L 04/04/22 01:08 Carbon Dioxide 30 mmol/L (22-29) H 04/04/22 01:08 Anion Gap 14.7 (5-19) 04/04/22 01:08 BUN 8 mg/dL (8-23) 04/04/22 01:08 Creatinine 0.6 mg/dL (0.7-1.2) L 04/04/22 01:08 GFR Calculation Not Reportable 04/04/22 01:08 Glucose 98 mg/dL (65-115) 04/04/22 01:08 Calculated Osmolality 276 mOsm/kg (285-295) L 04/04/22 01:08 Calcium 8.6 mg/dL (8.5-10.5) 04/04/22 01:08 Total Bilirubin 0.4 mg/dL (0.15-1.2) 04/04/22 01:08 AST 21 U/L (0-40) 04/04/22 01:08 ALT 15 U/L (0-41) 04/04/22 01:08 Alkaline Phosphatase 105 U/L (40-130) 04/04/22 01:08 Total Protein 8.7 g/dL (6.6-8.7) 04/04/22 01:08 Albumin 3.1 g/dL (3.5-5.2) L 04/04/22 01:08 Globulin 5.6 g/dL (1.3-4.6) H 04/04/22 01:08 Lipase 11 U/L (13-60) L 04/04/22 01:08 Discharge Plan Discharge Patient Disposition: Home Clinical Impression: Constipation Condition: Stable Prescriptions: New Citrate of Magnesia Solution 296 ml PO DAILY PRN (Reason: constipation) Qty: 296 0RF No Action fentanyl 100 mcg/hr patch 72 hour 1 patch TRANSDERMA Q72H temazepam 15 mg capsule 15 mg PO DAILY tamsulosin 0.4 mg capsule 0.4 mg PO BID duloxetine 60 mg capsule,delayed release(DR/EC) 60 mg PO DAILY hydroxyzine pamoate 50 mg capsule 50 mg PO TID PRN (Reason: Itching) hydromorphone 8 mg tablet 8 mg PO Q4H PRN (Reason: Pain) Lantus Solostar U-100 Insulin 100 unit/mL (3 mL) insulin pen 25 unit SUBCUT .QHS Rx Instructions: 15 units [id number] cholecalciferol (vitamin D3) 325 mcg (13,000 unit) capsule 325 mcg PO DAILY folic acid 1 mg tablet 1 mg PO DAILY Qty: 30 0RF clarithromycin 500 mg tablet 500 mg PO BID 14 Days Qty: 28 0RF pantoprazole [Protonix] 40 mg tablet,delayed release (DR/EC) 40 mg PO BID 14 Days Qty: 28 0RF ketoconazole 2 % cream 1 applic topical BID PRN (Reason: Allergy Symptoms) Rx Instructions: Apply to affected areas in the corners of the mouth 1-2 times daily mupirocin 2 % ointment 1 applic topical BID PRN (Reason: Allergy Symptoms) Rx Instructions: Apply to affected area on forehead until healed levofloxacin 500 mg tablet See Rx Instructions .ROUTE .COMPLEX Qty: 30 1RF Rx Instructions: 1 tab daily for 1 week then 1/2 tab daily there after; clobetasol 0.05 % ointment 1 applic topical BID 14 Days Qty: 60 1RF Rx Instructions: Apply to affected area no more than 2 wk/mo. Not for face/skin folds.Alternate w/ Triamcinolone triamcinolone acetonide 0.1 % ointment 1 applic topical BID Qty: 453.6 1RF Rx Instructions: Apply to affected area no more than 2 weeks per month. Not for face. fluticasone propionate [Flonase Allergy Relief] 50 mcg/actuation spray,yulissa pension 1 spray intranasal Q12H 30 Days Qty: 16 3RF Rx Instructions: administer into each nostril propranolol 10 mg tablet 10 mg PO DAILY Discharge Orders: Discharge ED (Routine); Ordered 04/04/22 Ordered By: Favian Noonan Referrals: Juliane Chen DO [Primary Care Provider] - 1-3 days Patient Instructions: Constipation (ED), Opioid Safety, Pain Management Activity Restrictions/Additional Instructions: Return for fever greater than 100, vomiting liquids or medications, worsening pain despite adequate treatment, any other concerning symptoms. Follow-up with your doctor early this week. Take the medication you were prescribed and dispensed this morning when you get home. Fill the prescription you were given. If the medication that was dispensed to you does not provide adequate relief of constipation, take the medication prescribed. Coding Level of Care Code ED Clinical Transformation Specialist for Otto Rg Exam Comprehensive
[2022-04-04 01:26] LABS: Basophils % 0.2 %; Hematocrit 28.8 % (42.0-52.0); Hemoglobin 8.5 g/dL (11.7-16.6); Lymphocytes # 2.1 10^3/uL (0.8-4.8); Lymphocytes % 38.3 %; Mean Corpuscular HGB Conc 29.5 g/dL (30.0-36.0); Mean Corpuscular Hemoglobin 21.6 pg (28.0-34.0); Mean Corpuscular Volume 73.3 fl (80-94); Mean Platelet Volume 11.9 fL (7.4-10.4); Neutrophils # 1.38 10^3/uL (1.8-7.7); Neutrophils % 24.6 %; Nucleated Red Blood Cells # 0.1 /100WBC; Nucleated Red Blood Cells % 1.1 %; Platelet Count 453 10^3/cmm (130-400); Red Blood Count 3.93 10^6/uL (4.1-5.3); Red Cell Distribution Width 14.4 % (12.1-15.1); White Blood Count 5.6 10^3/uL (4.0-10.0)
[2022-04-04 01:38] LABS: Alanine Aminotransferase 15 U/L (0-41); Albumin Level 3.1 g/dL (3.5-5.2); Alkaline Phosphatase 105 U/L (40-130); Anion Gap 14.7 (5-19); Aspartate Amino Transferase 21 U/L (0-40); Blood Urea Nitrogen 8 mg/dL (8-23); Calcium 8.6 mg/dL (8.5-10.5); Carbon Dioxide 30 mmol/L (22-29); Chloride 93 mmol/L (98-107); Globulin 5.6 g/dL (1.3-4.6); Glucose 98 mg/dL (65-115); Lipase 11 U/L (13-60); Osmolality Calculated 276 mOsm/kg (285-295); Potassium 3.7 mmol/L (3.5-5.1); Sodium 134 mmol/L (136-145); Total Bilirubin 0.4 mg/dL (0.15-1.2); Total Protein 8.7 g/dL (6.6-8.7)
[2022-04-04] MEDS: ondansetron 2 mg/ML SDV 2 mL 4 MG IVP (01:41)
[2022-04-04] MEDS: HYDROmorphone 1 mg/mL INJ 1 mL IVP (01:41)
[2022-04-04 01:56] LABS: Creatinine Clr Calc Pharmacy 64.2717
[2022-04-04] MEDS: iohexol 350 mg/mL 500 mL Btl (per mL) IV (02:11)
[2022-04-04] MEDS: lactulose oral liq 20 gm/30 mL UDC 30 GM PO (05:08)
[2022-04-04] MEDS: fentaNYL 50 mcg/mL INJ 2mL 75 MCG IVP (05:09)
[2022-04-04] MEDS: mineral oil 30 mL UDC PO (05:09)
[2022-04-04] MEDS: magnesium hydroxide 30 mL UDC PO (05:09)
== END 2022-04-04 06:03 | disposition home or self-care (01) ==
PROVIDERS: Nurse Practitioner Family; Emergency Provider Emergency Medicine; PCP Family Medicine
DX: K59.00 Constipation, unspecified (principal)
CPT/HCPCS: 74177; 80053; 83690; 85025; 96374; 96375; 99285; J1170; J2405; J3010; Q9967

== ENCOUNTER 2022-04-13 14:08 | Oncology outpatient (recurring) (ONCR) | payer MEDICARE, OTHER, SELFPAY ==
[2022-04-12 12:39] LABS: Hematocrit 28.7 % (42.0-52.0); Hemoglobin 8.5 g/dL (11.7-16.6); Lymphocytes # 1.7 10^3/uL (0.8-4.8); Lymphocytes % 56.9 %; Mean Corpuscular HGB Conc 29.6 g/dL (30.0-36.0); Mean Corpuscular Hemoglobin 21.5 pg (28.0-34.0); Mean Corpuscular Volume 72.7 fl (80-94); Mean Platelet Volume 10.5 fL (7.4-10.4); Monocytes # 0.8 10^3/uL (0.2-0.9); Monocytes % 25.8 %; Neutrophils % 15.6 %; Nucleated Red Blood Cells # 0.1 /100WBC; Platelet Count 265 10^3/cmm (130-400); Red Blood Count 3.95 10^6/uL (4.1-5.3); Red Cell Distribution Width 15.6 % (12.1-15.1)
[2022-04-12 12:49] LABS: Neutrophils # 0.46 10^3/uL (1.8-7.7)
[2022-04-12 12:50] LABS: Slide Review Slide Review Perform
--- NOTE | 2022-04-13 14:15 | XR_ITS ---
WS: [id number] Chest 2 views, 04/13/2022 Clinical Data: Pain Right lower chest Comparison: Portable chest, 10/25/2018. Findings: No nodules, masses or effusions are seen. The heart is normal. The pulmonary vascularity is not increased. No pneumonia or pneumothorax is seen. The aortic arch and descending thoracic aorta s how mild tortuosity. There are scattered granulomas throughout the lungs. 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 XR/XR chest 2V* [id number] Impression: Atherosclerosis.
[2022-04-13 14:36] LABS: Add Urine Microscopic? NO; Charge for UA Resulting for Rev
[2022-04-13 14:59] LABS: Bilirubin Urine 1+ (Negative); Blood Urine Neg (Negative); Glucose Urine UA Norm (Normal); Ketones Urine Negative (Negative); Leukocyte Esterase Urine Negative (Negative); Nitrate Urine Negative (Negative); Protein Urine Neg (Negative); Urine Appearance Clear (CLEAR); Urine Color Yellow (Yellow); Urobilinogen Urine 4 mg/dL (Negative); pH Urine 5 (5-7)
== END 2022-04-16 23:59 | disposition home or self-care (01) ==
PROVIDERS: PCP Family Medicine; Visit Provider Internal Medicine Hematology & Oncology
DX: R07.1 Chest pain on breathing (principal); I70.0 Atherosclerosis of aorta; Q25.46 Tortuous aortic arch; M47.894 Other spondylosis, thoracic region; Z87.891 Personal history of nicotine dependence
CPT/HCPCS: 36415; 71046; 81003; 85025; 99214

== ENCOUNTER 2022-04-28 09:51 | Oncology outpatient (recurring) (ONCR) | payer MEDICARE, OTHER, SELFPAY ==
[2022-04-28 11:03] LABS: Hematocrit 28.9 % (42.0-52.0); Hemoglobin 8.2 g/dL (11.7-16.6); Lymphocytes # 1.4 10^3/uL (0.8-4.8); Lymphocytes % 64.6 %; Mean Corpuscular HGB Conc 28.4 g/dL (30.0-36.0); Mean Corpuscular Hemoglobin 20.8 pg (28.0-34.0); Mean Corpuscular Volume 73.4 fl (80-94); Mean Platelet Volume 10.2 fL (7.4-10.4); Monocytes # 0.3 10^3/uL (0.2-0.9); Monocytes % 14.4 %; Neutrophils % 20.5 %; Nucleated Red Blood Cells # 0.1 /100WBC; Nucleated Red Blood Cells % 3.8 %; Platelet Count 140 10^3/cmm (130-400); Red Blood Count 3.94 10^6/uL (4.1-5.3); Red Cell Distribution Width 16.5 % (12.1-15.1); White Blood Count 2.1 10^3/uL (4.0-10.0)
[2022-04-28 11:52] LABS: Neutrophils # 0.43 10^3/uL (1.8-7.7); Slide Review Slide Review Perform
[2022-04-29 12:48] LABS: PROTEIN, TOTAL 8.3 g/dL (6.1-8.1)
[2022-05-02 13:26] LABS: ALPHA 1 GLOBULIN 0.4 g/dL (0.2-0.3); ALPHA 2 GLOBULIN 0.7 g/dL (0.5-0.9); BETA 1 GLOBULIN 0.5 g/dL (0.4-0.6); BETA 2 GLOBULIN 0.6 g/dL (0.2-0.5); GAMMA GLOBULIN 3.1 g/dL (0.8-1.7)
== END 2022-05-17 23:59 | disposition home or self-care (01) ==
PROVIDERS: PCP Family Medicine; Visit Provider Internal Medicine Hematology & Oncology
DX: D50.9 Iron deficiency anemia, unspecified (principal); Z79.899 Other long term (current) drug therapy; Z86.010 Personal history of colon polyps; K64.8 Other hemorrhoids
CPT/HCPCS: 36415; 83020; 84155; 84165; 85014; 85018; 85025; 85041; 86334; 99214

== ENCOUNTER 2022-05-06 12:50 | Outpatient (CLI) | payer MEDICARE, OTHER, SELFPAY ==
--- NOTE | 2022-05-06 13:00 | USR_ITS ---
PROCEDURE INFORMATION: Exam: US Duplex Lower Extremity Arteries Exam date and time: 05/06/2022 1:18 PM Age: 86 years old Clinical indication: Other: Claudication TECHNIQUE: Imaging protocol: Real-time ultrasound scan of the arteries of the bilateral lower extremities with 2-D portillo scale, color Doppler flow and spectral waveform analysis. Images documented and saved. COMPARISON: US renal BI* [id number] 02/17/2021 4:16 PM FINDINGS: Right iliac and common femoral artery: No occlusion or significant stenosis. Triphasic waveform. Right superficial femoral artery: No occlusion or significant stenosis. Triphasic waveform. Right popliteal artery: No occlusion or significant stenosis. Biphasic waveform. Right calf/foot arteries: No occlusion or significant stenosis in the visualized arteries. Biphasic l waveforms. Dorsalis pedis artery is patent. Left iliac and common femoral artery: No occlusion or significant stenosis. Triphasic waveform. Left superficial femoral artery: No occlusion or significant stenosis. Triphasic waveform. Left popliteal artery: No occlusion or significant stenosis. Biphasic waveform. Left calf/foot arteries: No occlusion or significant stenosis in the visualized arteries. Biphasic waveforms. Dorsalis pedis artery is not included with the exam. US/[place] [id number] IMPRESSION: No stenosis or occlusion.
== END 2022-05-06 12:51 | disposition home or self-care (01) ==
LOC: RAD 12:50
PROVIDERS: PCP Family Medicine; Visit Provider Family Medicine
DX: I73.9 Peripheral vascular disease, unspecified (principal)
CPT/HCPCS: 93925

== ENCOUNTER → 2022-06-20 11:12 | Outpatient (BNVA) | payer MEDICARE, OTHER, SELFPAY | PROVIDERS: PCP Family Medicine; Visit Provider Nurse Practitioner | DX: D46.9 Myelodysplastic syndrome, unspecified (principal) | CPT/HCPCS: 99214 ==

== ENCOUNTER 2022-07-04 09:10 | Oncology outpatient (recurring) (ONCR) | payer MEDICARE, OTHER, SELFPAY ==
[2022-06-20 11:52] LABS: Hematocrit 30.3 % (42.0-52.0); Hemoglobin 8.6 g/dL (11.7-16.6); Lymphocytes # 1.4 10^3/uL (0.8-4.8); Lymphocytes % 52.1 %; Mean Corpuscular HGB Conc 28.4 g/dL (30.0-36.0); Mean Corpuscular Hemoglobin 19.8 pg (28.0-34.0); Mean Corpuscular Volume 69.8 fl (80-94); Mean Platelet Volume 10.5 fL (7.4-10.4); Monocytes # 0.6 10^3/uL (0.2-0.9); Monocytes % 21.8 %; Neutrophils % 25.3 %; Nucleated Red Blood Cells # 0.1 /100WBC; Nucleated Red Blood Cells % 2.7 %; Platelet Count 231 10^3/cmm (130-400); Red Blood Count 4.34 10^6/uL (4.1-5.3); Red Cell Distribution Width 17.6 % (12.1-15.1); White Blood Count 2.6 10^3/uL (4.0-10.0)
[2022-06-20 11:53] LABS: Reticulocyte % 2.7 % (0.5-2.0)
[2022-06-20 12:11] LABS: Ferritin 451 ng/mL (30-400); Iron 67 ug/dL (59-158); Percent Saturation 32.5 % (20-50); Total Iron Binding Capacity 206 mcg/dl; Unsaturated Iron Binding 139 ug/dL (112-347)
[2022-06-20 12:12] LABS: Add RBC Morph Yes; Neutrophils # 0.66 10^3/uL (1.8-7.7); RBC Morph Comp No; Slide Review Slide Review Perform
[2022-06-20 12:13] LABS: Anisocytosis 2+; Hypochromasia 3+; Microcytosis 1+; Target Cells 1+
[2022-06-20 14:21] LABS: Vitamin B12 > 2000 pg/mL (232-1245)
[2022-07-04 10:07] LABS: Hematocrit 30.2 % (42.0-52.0); Hemoglobin 8.5 g/dL (11.7-16.6); Lymphocytes # 1.2 10^3/uL (0.8-4.8); Lymphocytes % 50.6 %; Mean Corpuscular HGB Conc 28.1 g/dL (30.0-36.0); Mean Corpuscular Hemoglobin 19.4 pg (28.0-34.0); Mean Corpuscular Volume 68.8 fl (80-94); Mean Platelet Volume 11.6 fL (7.4-10.4); Monocytes # 0.8 10^3/uL (0.2-0.9); Monocytes % 31.1 %; Neutrophils % 17.9 %; Nucleated Red Blood Cells # 0.1 /100WBC; Nucleated Red Blood Cells % 3.3 %; Platelet Count 136 10^3/cmm (130-400); Red Blood Count 4.39 10^6/uL (4.1-5.3); Red Cell Distribution Width 15.6 % (12.1-15.1); White Blood Count 2.4 10^3/uL (4.0-10.0)
[2022-07-04 10:39] LABS: Alanine Aminotransferase < 5 U/L (0-41); Albumin Level 3.8 g/dL (3.5-5.2); Alkaline Phosphatase 86 U/L (40-130); Anion Gap 10.9 (5-19); Aspartate Amino Transferase 15 U/L (0-40); Blood Urea Nitrogen 14 mg/dL (8-23); Calcium 8.8 mg/dL (8.5-10.5); Carbon Dioxide 29 mmol/L (22-29); Chloride 99 mmol/L (98-107); Globulin 5.3 g/dL (1.3-4.6); Glucose 98 mg/dL (65-115); Osmolality Calculated 280 mOsm/kg (285-295); Potassium 3.9 mmol/L (3.5-5.1); Sodium 135 mmol/L (136-145); Thyroid Stimulating Hormone 4.41 uIU/mL (0.27-4.20); Total Bilirubin 0.5 mg/dL (0.15-1.2); Total Protein 9.1 g/dL (6.6-8.7)
[2022-07-04 10:51] LABS: Neutrophils # 0.43 10^3/uL (1.8-7.7); Slide Review Slide Review Perform
== END 2022-07-15 23:59 | disposition home or self-care (01) ==
PROVIDERS: Nurse Practitioner; PCP Family Medicine; Visit Provider Internal Medicine Hematology & Oncology
DX: D46.9 Myelodysplastic syndrome, unspecified (principal); R68.89 Other general symptoms and signs
CPT/HCPCS: 36415; 80053; 82607; 82728; 83540; 83550; 84443; 85025; 85045

== ENCOUNTER → 2022-07-13 09:12 | Outpatient (BNVA) | payer MEDICARE, OTHER, SELFPAY | PROVIDERS: PCP Family Medicine; Visit Provider Internal Medicine Hematology & Oncology | DX: D64.9 Anemia, unspecified (principal); I10 Essential (primary) hypertension | CPT/HCPCS: 36415; 80053; 84443; 85025; 99214 ==

== ENCOUNTER 2022-07-17 10:27 | Observation (INO) | payer MEDICARE, OTHER, SELFPAY ==
[2022-07-17] VITALS (16 sets, daily range): BP systolic 62–93; BP diastolic 30–57; PULSE 89–109; RESP 14–43; TEMP 36.7–38.1; O2SAT 80–100; BMI 27.1
--- NOTE | 2022-07-17 10:34 | XRR_ITS ---
PROCEDURE INFORMATION: Exam: XR Chest Exam date and time: 07/17/2022 11:01 AM Age: 86 years old Clinical indication: Fever TECHNIQUE: Imaging protocol: Radiologic exam of the chest. Views: 1 view. COMPARISON: CR XR chest 2V* [id number] 04/13/2022 2:18 PM FINDINGS: Lungs: There are pulmonary parenchymal calcifications consistent with remote granulomatous organism exposure. Pleural spaces: Unremarkable. No pleural effusion. No pneumothorax. Heart/Mediastinum: Unremarkable. No cardiomegaly. Vasculature: There is minimal calcified plaque in the aortic knob. Bones/joints: There are degenerative changes in the thoracic spine and across the glenohumeral and acromioclavicular joints. XR/XR chest 1V portable [id number] IMPRESSION: No evidence for acute cardiopulmonary disease.
--- NOTE | 2022-07-17 10:37 | ED_ITS ---
HPI - General Adult General: Chief complaint: Altered Mental Status Stated complaint: AMS Time Seen by Provider: 07/17/22 10:31 Source: EMS Mode of arrival: EMS Limitations: altered mental status History of Present Illness: 86-year-old male with a history of mild dysplastic syndrome EMS was called as he was confused this morning at home. He is on a fentanyl patch per EMS he is minimally responsive here he is only alert to painful stimuli his pupils are pinpoint they did remove his fentanyl patch she has had a low-grade fever no known cough no history available from patient as he is quite altered this time. Review of Systems General: Reports: ROS unobtainable due to mental status PFSH ED PFSH: Medical History BPH (benign prostatic hyperplasia) BPH w/o urinary obs/LUTS CAD (coronary artery disease) Chronic back pain Diabetes Hematochezia Hemoptysis History of bladder cancer History of prostatitis HTN (hypertension) MDS (myelodysplastic syndrome) Mild ascending aorta dilatation Surgical History History of bilateral knee replacement History of lumbar fusion Hx of heart artery stent Family History Son Cancer esophageal cancer Mother , at age 82 Heart disease Father , at age 82 Lung disease Other Bleeding disorder CAD (coronary artery disease) Diabetes Hypertension Stroke Social History Smoking and tobacco status: former smoker (15 year smoker) Quit status (tobacco): has quit using tobacco Year quit tobacco: 1977 Former quit date comment: 0.5 ppd X 20 years Second hand smoke exposure: No Alcohol intake: current Alcohol intake frequency: holidays/special occasions only Alcohol type: beer Adopted: No Caregiver/support person: No Lives independently: No Household members: spouse Marital status: Current occupational status: retired Current gender identity: Male Physical Exam Const: COMMON NORMALS: negative for patient oriented x3 HENMT: COMMON NORMALS: normocephalic and atraumatic HEAD & SCALP: normocephalic and atraumatic Eye: COMMON NORMALS: EOMs intact bilaterally PUPIL: Yes Pinpoint pupils Neck/C-Spine: COMMON NORMALS: full ROM and supple Chest: COMMONS NORMALS: normal inspection of the chest and normal palpation of entire chest wall Resp: COMMON NORMALS: normal respiratory effort, No retractions, No use of accessory muscles and clear to auscultation bilaterally AUSCULTATION: clear to auscultation bilaterally Cardio: COMMON NORMALS: regular rate, regular rhythm and No murmurs present (Cardio) RATE: regular rate RHYTHM: regular rhythm GI: COMMON NORMALS: Normal to inspection, nondistended, normoactive bowel sounds present, Soft to palpation, non-tender and no masses PALPATION: Yes Soft to palpation Extremity: COMMON NORMALS: normal to inspection and full ROM Neuro: COMMON NORMALS: moves all extremities and no focal motor deficits; negative for patient oriented x3 Psych: COMMON NORMALS: Normal thought process present and cooperative; negative for mental status grossly normal THOUGHT PROCESS: Normal thought process present Skin: COMMON NORMALS: no rashes or lesions noted and no wounds GENERAL SKIN EXAM: no rashes or lesions noted Course Reevaluation(s): Reevaluation #1: After Narcan patient is now awake and alert and is able answer all my questions appropriately knows the year he knows the date he knows where he is. He states that he does not want any treatment I informed him his blood pressure is very low he states that he knows he is dying of cancer he does not want any treatment I stated would you want to be comfort care and hospice and he said yes at this time he does have medical decision made capacity at this time. Time: 11:03 Vital Signs: Vital signs: Vital Signs Temperature 100.6 F H 07/17/22 10:27 Pulse Rate 98 07/17/22 11:48 Respiratory Rate 14 07/17/22 11:48 Blood Pressure 80/43 07/17/22 11:48 Pulse Oximetry 100 07/17/22 11:48 Oxygen Delivery Me thod 07/17/22 11:48 Oxygen Flow Rate 3 07/17/22 11:48 [facility] - General Adult Medical Decision Making Patient presented here originally with altered mental status he also has a fever he did awake after Narcan I spoke to him at length he has medical decision- making capacity is answering all my questions correctly he states that he does not want any treatment he knows this could be life-threatening he states that he wants to be on comfort care he refused life-saving measures wants to be DNR/DNI he refused central line refused any pressors he states he wants no treatment at all at this time. Lab Data Laboratory Results Specimen Type Arterial 07/17/22 10:42 Sample Site Radial, left 07/17/22 10:42 ABG pH 7.45 (7.35-7.45) 07/17/22 10:42 ABG pCO2 25.3 mmHg (35-45) L 07/17/22 10:42 ABG pO2 77.3 mmHg (80.0-100.0) L 07/17/22 10:42 ABG HCO3 17.5 mmol/L (22-26) L 07/17/22 10:42 ABG Base Excess -5.6 mmol/L (-2.0-2.0) L 07/17/22 10:42 Mauricio Test Pos 07/17/22 10:42 Hematocrit 26.9 % (42-52) L 07/17/22 10:42 O2 Delivery Device None 07/17/22 10:42 FiO2 21.0 % 07/17/22 10:42 Manufacturing Plant Manager ID [email or web address] 07/17/22 10:42 Discharge Plan Discharge Patient Disposition: Admitted As Inpatient Admit Provider: Joshua Blandon Clinical Impression: Altered mental status, Fever Condition: Stable Coding Level of Care Code ED Nursing Administrator for Otto Rg
[2022-07-17] MEDS: sodium chloride 0.9% 1,000 ML 999 ML IV (10:44)
[2022-07-17 10:54] LABS: ABG PH Result 7.45 (7.35-7.45); Blood Gas Allen Test Pos; Blood Gas Sample Site Radial, left; Blood Gas Sample Type Arterial
[2022-07-17 10:55] LABS: ABG PCO2 25.3 mmHg (35-45); Arterial Blood Gas Hematocrit 26.9 % (42-52); Base Excess ABG -5.6 mmol/L (-2.0-2.0); HCO3 ABG 17.5 mmol/L (22-26); PO2 ABG 77.3 mmHg (80.0-100.0)
[2022-07-17] MEDS: acetaminophen 500 mg Tablet 1000 MG PO (10:56)
[2022-07-17] MEDS: HYDROmorphone 1 mg/mL INJ 1 mL IVP (11:07)
[2022-07-17] MEDS: ondansetron 2 mg/ML SDV 2 mL 4 MG IVP (11:08)
--- NOTE | 2022-07-17 11:21 | PC.NURSE ---
Patient given Narcan IV. Pt became aroused, stating just let me . why do I have to hurt? Just let me go . Patient reported to this nurse and Dr. Mcgill that he wishes to be a DNR.
--- NOTE | 2022-07-17 11:22 | PC.PHAR ---
pt unable to verify medications-pts states the pt gives himself his own lantus pts states unsure how much he takes pt unable to verify faxed [facility] for med list-medications entered are from list family had brought in without directions ext med history and what was on previous entered med list-
--- NOTE | 2022-07-17 12:17 | PM.HP ---
Providers/Chief Complaint Admitting Physician: Joshua Blandon MD Primary Care Provider: Juliane Chen DO Chief Complaint: AMS History of Present Illness Mati Wing is a 86 year old male with past medical history hypertension coronary disease diabetes MDS, chronic anemia, EMS was called at home as the patient was confused, when EMS arrived at the scene patient was having fentanyl patch and he was minimally responsive and had pinpoint pupils, fentanyl patch was removed, when he arrived here in the ER, he was given Narcan, with improvement in mentation, he was appropriately able to answer all the questions to the ER physician, he clearly expressed his view that he do not want, any intervention and just want to be comfort care, he is likely having sepsis, and was severely hypotensive, he denied any intervention. Patient was mentally very completed in the ER. His wishes were honored. He was placed on comfort care. Review of Systems Narrative: Not needed patient is on comfort care. Medications/Allergies Home Medications Medication Instructions Recorded Confirmed Last Taken Type temazepam 15 mg capsule 15 mg PO BEDTIME PRN Sleep 06/14/19 07/17/22 11/30/21 History duloxetine 60 mg capsule,delayed 60 mg PO DAILY 06/08/21 07/17/22 11/30/21 History release hydromorphone 8 mg tablet 8 mg PO Q4H PRN Pain 06/08/21 07/17/22 11/30/21 History insulin glargine 100 unit/mL (3 See Rx Instructions .Route .COMPLEX 06/08/21 07/17/22 11/30/21 History mL) subcutaneous pen (Lantus Solostar U-100 Insulin) propranolol 10 mg tablet 10 mg PO BID 11/30/21 07/17/22 12/01/21 History tamsulosin 0.4 mg capsule 0.4 mg PO BID 12/21/21 07/17/22 Unknown History fentanyl 75 mcg/hr transdermal 1 patch transdermal Q72H 04/12/22 07/17/22 07/16/22 History patch on chest-ems removed hydroxyzine pamoate 50 mg capsule 50 mg PO TID PRN Itching #30 caps 07/04/22 07/17/22 Unknown Rx aspirin 81 mg tablet,delayed 81 mg PO DAILY 07/17/22 07/17/22 Unknown History release clobetasol 0.05 % topical ointment 1 applic topical BID PRN unknown 07/17/22 07/17/22 Unknown History gabapentin 300 mg capsule 300 mg PO TID 07/17/22 07/17/22 Unknown History naloxone 4 mg/actuation nasal spray See Rx Instructions .Route .COMPLEX 07/17/22 07/17/22 Unknown History Allergies Allergy/AdvReac Type Severity Reaction Status Date / Time No Known Allergies Allergy Verified 07/13/22 11:18 PFSH Acute PFSH: Medical History BPH (benign prostatic hyperplasia) BPH w/o urinary obs/LUTS CAD (coronary artery disease) Chronic back pain Diabetes Hematochezia Hemoptysis History of bladder cancer History of prostatitis HTN (hypertension) MDS (myelodysplastic syndrome) Mild ascending aorta dilatation Surgical History History of bilateral knee replacement History of lumbar fusion Hx of heart artery stent Family History Son Cancer esophageal cancer Mother , at age 82 Heart disease Father , at age 82 Lung disease Other Bleeding disorder CAD (coronary artery disease) Diabetes Hypertension Stroke Social History Smoking and tobacco status: former smoker (15 year smoker) Quit status (tobacco): has quit using tobacco Year quit tobacco: 1977 Former quit date comment: 0.5 ppd X 20 years Second hand smoke exposure: No Alcohol intake: current Alcohol intake frequency: holidays/special occasions only Alcohol type: beer Adopted: No Caregiver/support person: No Lives independently: No Household members: spouse Marital status: Current occupational status: retired Current gender identity: Male Vitals/I&O/Wt Last Vital Signs Temp 100.6 F H 07/17/22 10:27 Pulse 96 07/17/22 12:00 Resp 29 H 07/17/22 12:00 BP 82/44 07/17/22 12:00 Pulse Ox 99 07/17/22 12:00 O2 Del Method 07/17/22 11:48 O2 Flow Rate 3 07/17/22 11:48 Weight last 48 hrs Weight 76.204 kg Physical Exam Narrative: Not needed patient is on comfort care measures only. A&P Assessment and plan (1) Diabetes: Qualifiers: Diabetes mellitus type: type 2 (2) CAD (coronary artery disease): (3) Sepsis: (4) Need for comfort care: Mati Wing is a 86 year old male with past medical history hypertension coronary disease diabetes MDS, chronic anemia, EMS was called at home as the patient was confused, when EMS arrived at the scene patient was having fentanyl patch and he was minimally responsive and had pinpoint pupils, fentanyl patch was removed, when he arrived here in the ER, he was given Narcan, with improvement in mentation, he was appropriately able to answer all the questions to the ER physician, he clearly expressed his view that he do not want, any intervention and just want to be comfort care, he is likely having sepsis, and was severely hypotensive, he denied any intervention. Patient was mentally very completed in the ER. His wishes were honored. He was placed on comfort care. (5) MDS (myelodysplastic syndrome): (6) Microcytic anemia: Attestations Medical Necessity Statement*: In hospital for comfort care measures. Coding Level of Care Code 49561 Diagnoses Diabetes E11.9 Diabetes mellitus type: type 2 CAD (coronary artery disease) I25.10 Sepsis A41.9 Need for comfort care MDS (myelodysplastic syndrome) D46.9 Microcytic anemia D50.9
[2022-07-17] MEDS: sodium chloride 0.9% 500 ML 999 ML IV (12:24)
--- NOTE | 2022-07-17 14:16 | PC.NURSE ---
nurse was notified
[2022-07-17 19:15] LABS: Glucose Point of Care 136 mg/dL (70-110)
[2022-07-18] VITALS (13 sets, daily range): BP systolic 102–120; BP diastolic 67–69; PULSE 89–130; RESP 18–23; TEMP 36.4–37.4; O2SAT 92–94
[2022-07-18] MEDS: morphine 4 mg/mL SDV 1 mL IVP ×8 (05:03→21:26)
--- NOTE | 2022-07-18 05:07 | PC.NURSE ---
pt stated he cant take the pain anymore and wants to go home and peacefully This nurse confirmed that the pt only wants to be comfortable and no further interventions to be made. Pt stated he wants noting but pain control.
[2022-07-18] MEDS: LORazepam 2 mg/mL INJ 1 mL IVP ×3 (07:33→21:27)
--- NOTE | 2022-07-18 10:17 | PC.CHAP ---
Pastoral Care Encounter/Spiritual Assessment Type of Contact [] Declined food and beverage lead visit [] Patient/Family/Request visit [] Outpatient visit [] Follow-up visit [] Physician referral [] Code/Alert [] Routine visit [] Staff referral [] Actively dying [x] Patient sleeping [] Family support [] [] Out of room [] Palliative care [] [] Receiving care in room [] Pre-surgical visit [] Trauma [] Long length of stay [] ICU visit [] Other: Relational/Emotional Strength [] Patient feels connected with others/family/visitors/staff [] Distress [] Loneliness/isolation [] Abandonment Spirituality of Patient [] Person of Karely [] Attends Muslim of their Karely [] Believes in Prayer [] Reads Bible or Christian materials [] There are Spiritual issues to be addressed Pediatrics Hospitalist Interventions [] Prayer [] Active listening [] Non-anxious presence [] Spiritual/emotional support [] Crisis/trauma care [] Spiritual counseling [] Bereavement support [] Provided bereavement packet [] Provided Bible/devotional materials [] Provided toy/stuffed animal, coloring book to patient or family member [] Provided Communion [] Anointing/[place] [] Salvation [] Completed spiritual assessment [] Other: Impact on Illness or Injury [] Angry [] Fearful [] Anxious [] Often cries [] Exhaustion [] Unable to work [] Unable to attend anabaptism [] Unable to walk/stand [] Unable to read [] Unable to drive [] Unable to eat/drink [] Unable to sleep [] Unable to be with family [] Patient intubated [] Other: Summary Time spent with patient
--- NOTE | 2022-07-18 22:29 | PM.PN ---
Subjective Subjective: patient continues to report pain, wishe sto be placed back on fentanyl patch understanding the risks, states he would like to consider hospice Medications: Reviewed: Yes Vitals/I&O/Wt Last Vital Signs Temp 97.6 F 07/18/22 20:20 Pulse 130 H 07/18/22 20:20 Resp 20 H 07/18/22 21:26 BP 120/67 07/18/22 20:20 Pulse Ox 93 07/18/22 20:20 O2 Del Method 07/18/22 20:00 O2 Flow Rate 0 07/18/22 20:00 07/18/22 07/18/22 07/18/22 06:59 14:59 22:59 Intake Total 480 / 1980 320 / 320 480 / 800 Output Total 200 / 455 450 / 450 Balance 280 / 1525 320 / 320 30 / 350 Weight last 48 hrs Weight 76.204 kg Weight 76.204 kg Physical Exam Narrative: General: No acute distress, AO x3 HEENT: PERRLA, pupils bilaterally equal and reactive, pallors not present Chest: Normal vesicular breath sounds, no added sounds, equal good air entry bilaterally CVS: S1-S2 regular, no murmurs, no tachycardia, no gallops, no rubs Abdomen: Soft, nontender, no organomegaly, bowel sounds present Neuro: No focal deficits, no facial deformity, AO x3, power 5/5 in all limbs Urinary Catheter Management: Davalos: Cath Placed During This Visit: yes Reason for Continuing Indwelling Catheter: Hospice/Comfort/Palliative Care Urinary Catheter Date of Insertion: 07/17/22 Urinary Catheter Time of Insertion: 14:27 A&P Assessment and plan (1) Diabetes: Qualifiers: Diabetes mellitus type: type 2 (2) CAD (coronary artery disease): (3) Sepsis: (4) Need for comfort care: Mati Wing is a 86 year old male with past medical history hypertension coronary disease diabetes MDS, chronic anemia, EMS was called at home as the patient was confused, when EMS arrived at the scene patient was having fentanyl patch and he was minimally responsive and had pinpoint pupils, fentanyl patch was removed, when he arrived here in the ER, he was given Narcan, with improvement in mentation, he was appropriately able to answer all the questions to the ER physician, he clearly expressed his view that he do not want, any intervention and just want to be comfort care, he is likely having sepsis, and was severely hypotensive, he denied any intervention. Today he continues to report pain and wishes fentanyl patch to be placed back. Would also like to consider hospice referral which will be arranged Patientis currently awake, alert, able to state wishes Discussed with patient and that placing fentanyl patch would likely lead to increased somnolence similar to when he was brought in to hospital. Patient states that he understands the risks and wishes ot proceed. As does his . She states that EMS was called on this occssion as patient was vomiting and patient's children who had stopped by at the time panicked and called EMS. They would like to retrun home with hospice soon. (5) MDS (myelodysplastic syndrome): (6) Microcytic anemia: Attestations Medical Necessity Statement*: need for comfort measures Coding Level of Care Code Acute Code for [facility] Fwd Diagnoses Diabetes E11.9 Diabetes mellitus type: type 2 CAD (coronary artery disease) I25.10 Sepsis A41.9 Need for comfort care MDS (myelodysplastic syndrome) D46.9 Microcytic anemia D50.9
[2022-07-19] VITALS (7 sets, daily range): BP systolic 99; BP diastolic 64–74; PULSE 111; RESP 18–36; O2SAT 91
[2022-07-19] MEDS: morphine 4 mg/mL SDV 1 mL IVP ×4 (03:08→12:10)
[2022-07-19] MEDS: LORazepam 2 mg/mL INJ 1 mL IVP ×2 (07:11→11:05)
[2022-07-19] MEDS: fentaNYL 25 mcg Patch 1 PATCH TRANSDERMA (08:43)
--- NOTE | 2022-07-19 10:21 | PC.CHAP ---
Pastoral Care Encounter/Spiritual Assessment Type of Contact [] Declined safety and skill based pay manager visit [] Patient/Family/Request visit [] Outpatient visit [] Follow-up visit [] Physician referral [] Code/Alert [x] Routine visit [] Staff referral [] Actively dying [] Patient sleeping [] Family support [] [] Out of room [] Palliative care [] [] Receiving care in room [] Pre-surgical visit [] Trauma [] Long length of stay [] ICU visit [] Other: Relational/Emotional Strength [] Patient feels connected with others/family/visitors/staff [] Distress [] Loneliness/isolation [] Abandonment Spirituality of Patient [] Person of Karely [] Attends Voodoo of their Karely [] Believes in Prayer [] Reads Bible or Congregation materials [] There are Spiritual issues to be addressed Quality Assurance Lab Technician Interventions [x] Prayer [] Active listening [] Non-anxious presence [] Spiritual/emotional support [] Crisis/trauma care [] Spiritual counseling [] Bereavement support [] Provided bereavement packet [] Provided Bible/devotional materials [] Provided toy/stuffed animal, coloring book to patient or family member [] Provided Communion [] Anointing/[place] [] Salvation [] Completed spiritual assessment [] Other: Impact on Illness or Injury [] Angry [] Fearful [] Anxious [] Often cries [] Exhaustion [] Unable to work [] Unable to attend confucianist [] Unable to walk/stand [] Unable to read [] Unable to drive [] Unable to eat/drink [] Unable to sleep [] Unable to be with family [] Patient intubated [] Other: Summary Time spent with patient
--- NOTE | 2022-07-19 15:26 | P.DS_ITS ---
Discharge Providers Date of Admission: 07/17/22 11:06 Date of Discharge: July 19, 2022 Attending Provider at Admission: Joshua Blandon MD Attending Provider at Discharge: Macy Alejo MD Primary Care Provider: Juliane Chen DO Diagnoses at Discharge Discharge Diagnosis (1) Diabetes: Status: Acute Qualifiers: Diabetes mellitus type: type 2 (2) CAD (coronary artery disease): Status: Acute (3) Sepsis: Status: Acute (4) Need for comfort care: Status: Acute (5) MDS (myelodysplastic syndrome): Status: Acute (6) Microcytic anemia: Status: Acute Reason for Visit Reason for Visit: AMS Hospital Course Hospital Course Mati Wing is a 86 year old male with past medical history hypertension coronary disease diabetes MDS, chronic anemia, EMS was called at home as the patient was confused, when EMS arrived at the scene patient was having fentanyl patch and he was minimally responsive and had pinpoint pupils, fentanyl patch was removed, when he arrived here in the ER, he was given Narcan, with improvement in mentation, he was appropriately able to answer all the questions to the ER physician, he clearly expressed his view that he do not want, any intervention and just want to be comfort care, he is likely having sepsis, and was severely hypotensive, he denied any intervention. He was alert awake and oriented when he made this decision.His wishes were honored. He was placed on comfort care during the hospital course and was transitioned to home with hospice in accordance with his and his family's wishes. Physical Exam Narrative: General: No acute distress, AO x3 HEENT: PERRLA, pupils bilaterally equal and reactive, pallors not present Chest: Normal vesicular breath sounds, no added sounds, equal good air entry bilaterally CVS: S1-S2 regular, no murmurs, no tachycardia, no gallops, no rubs Abdomen: Soft, nontender, no organomegaly, bowel sounds present Neuro: No focal deficits, no facial deformity, AO x3, power 5/5 in all limbs Urinary Catheter Management: Davalos: Cath Placed During This Visit: yes Reason for Continuing Indwelling Catheter: Other Urinary Catheter Date of Insertion: 07/17/22 Urinary Catheter Time of Insertion: 14:27 Discharge Data Studies Completed and Pending Completed Studies During Hospitalization Category Date Time Status XR chest 1V portable [id number] Stat Exams 07/17/22 10:34 Completed Radiology Impressions Chest X-Ray 07/17/22 10:34 IMPRESSION: No evidence for acute cardiopulmonary disease. Laboratory Results Specimen Type Arterial 07/17/22 10:42 Sample Site Radial, left 07/17/22 10:42 ABG pH 7.45 (7.35-7.45) 07/17/22 10:42 ABG pCO2 25.3 mmHg (35-45) L 07/17/22 10:42 ABG pO2 77.3 mmHg (80.0-100.0) L 07/17/22 10:42 ABG HCO3 17.5 mmol/L (22-26) L 07/17/22 10:42 ABG Base Excess -5.6 mmol/L (-2.0-2.0) L 07/17/22 10:42 Mauricio Test Pos 07/17/22 10:42 Hematocrit 26.9 % (42-52) L 07/17/22 10:42 O2 Delivery Device None 07/17/22 10:42 FiO2 21.0 % 07/17/22 10:42 Drug Safety Scientist ID [email or web address] 07/17/22 10:42 POC Glucose 136 mg/dL (70-110) H 07/17/22 10:35 Vitals Last Vital Signs Temp 97.6 F 07/18/22 20:20 Pulse 111 H 07/19/22 13:22 Resp 18 07/19/22 13:22 BP 99/74 07/19/22 13:22 Pulse Ox 91 07/19/22 13:22 O2 Del Method 07/19/22 12:00 O2 Flow Rate 0 07/19/22 08:00 Discharge Plan Discharge Patient Disposition: Hospice - Home Condition: Stable Prescriptions: Continued temazepam 15 mg capsule 15 mg PO BEDTIME PRN (Reason: Sleep) tamsulosin 0.4 mg capsule 0.4 mg PO BID duloxetine 60 mg capsule,delayed release(DR/EC) 60 mg PO DAILY hydromorphone 8 mg tablet 8 mg PO Q4H PRN (Reason: Pain) Lantus Solostar U-100 Insulin 100 unit/mL (3 mL) insulin pen See Rx Instructions .ROUTE .COMPLEX Rx Instructions: as directed fentanyl 75 mcg/hr patch 72 hour 1 patch transdermal Q72H hydroxyzine pamoate 50 mg capsule 50 mg PO TID PRN (Reason: Itching) Qty: 30 2RF propranolol 10 mg tablet 10 mg PO BID aspirin 81 mg Tablet,Delayed Release (Dr/Ec) 81 mg PO DAILY gabapentin 300 mg capsule 300 mg PO TID naloxone 4 mg/actuation spray,non-aerosol See Rx Instructions .ROUTE .COMPLEX Rx Instructions: intranasally as needed as directed clobetasol 0.05 % ointment 1 applic topical BID PRN (Reason: unknown) Rx Instructions: Apply to affected area no more than 2 weeks per month, not for face or skin folds. Discharge Orders: Discharge Order (Routine); Ordered 07/19/22 Ordered By: Macy Alejo Referrals: Juliane Chen DO [Primary Care Provider] - Discharge Diet: Usual diet Discharge Activity: Resume usual activity Patient Instructions: Hospice Care (GEN) Discharge Attestations Time Spent in Discharge Care*: greater than 30 min Quality Metrics Clinical Quality Measures [ No reported AMI, CVA or VTE this stay] Coding Level of Care Code Acute Code for [facility] Fwd Diagnoses Diabetes E11.9 Diabetes mellitus type: type 2 CAD (coronary artery disease) I25.10 Sepsis A41.9 Need for comfort care MDS (myelodysplastic syndrome) D46.9 Microcytic anemia D50.9
== END 2022-07-19 13:23 | disposition hospice, home (50) ==
LOC: ER 11:23 → MEDSURG 12:04
PROVIDERS: Admitting Provider Internal Medicine; Emergency Provider Emergency Medicine; PCP Family Medicine; Visit Provider Student in an Organized Health Care Education/Training Program
DX: A41.9 Sepsis, unspecified organism (principal); R50.9 Fever, unspecified; E11.9 Type 2 diabetes mellitus without complications; I10 Essential (primary) hypertension; D46.9 Myelodysplastic syndrome, unspecified; I25.10 Atherosclerotic heart disease of native coronary artery without angina pectoris; D50.9 Iron deficiency anemia, unspecified; Z79.4 Long term (current) use of insulin; Z79.82 Long term (current) use of aspirin; Z87.891 Personal history of nicotine dependence; Z95.5 Presence of coronary angioplasty implant and graft
CPT/HCPCS: 36416; 36600; 51702; 71045; 82803; 82962; 96361; 96374; 96375; 99285; G0378; J1170; J2060; J2270; J2310; J2405; J7030; J7040